=== PATIENT | female | born 1945 | race Hispanic/Latino ===

== ENCOUNTER 2017-08-02 12:09 | Outpatient (CLI) | payer MEDICARE | END 2017-08-02 12:10 | disposition home or self-care (01) | LOC: BICRAD 12:09 | PROVIDERS: ATTEND Family Medicine | DX: M54.5 Low back pain (principal); M25.552 Pain in left hip; M47.896 Other spondylosis, lumbar region | CPT/HCPCS: 72100 ==

== ENCOUNTER 2018-03-10 20:24 | Emergency (ER) | payer MEDICARE | END 2018-03-10 20:48 | disposition left against medical advice (07) | LOC: ERS 20:24 | DX: Z53.21 Procedure and treatment not carried out due to patient leaving prior to being seen by health care provider (principal) ==

== ENCOUNTER 2019-01-29 10:15 | Emergency (ER) | payer MEDICARE ==
[2019-01-29 11:01] LABS: #Basophils 0.1 thou/uL (0.0-0.2); #Eosinphils 0.1 thou/uL (0.0-0.7); #Lymphocytes 1.8 thou/uL (1.20-3.40); #Monocytes 0.7 thou/uL (0.11-0.59); #Neutrophils 6.1 thou/uL (1.40-6.50); %Basophils 1.5 % (0.0-1.0); %Eosinophils 1.3 % (0.0-10.0); %Lymphocytes 20.3 % (21.0-51.0); %Monocytes 8.1 % (0.0-10.0); %Neutrophils 68.9 % (42.0-75.0); Hemoglobin 13.9 g/dL (12.0-16.0); Mean Corpuscular HGB CONC 35.4 g/dL (32.0-36.0); Mean Corpuscular Volume 90.3 fL (78.0-98.0); Mean Platelet Volume 9.9 fL (7.4-10.4); Platelet Count 163 thou/uL (130-400); RBC Distribution Width 11.4 % (11.5-14.5); Red Blood Cell (RBC) Count 4.36 mill/uL (4.20-5.40); White Blood Cell (WBC) Count 8.8 thou/uL (4.8-10.8)
--- NOTE | 2019-01-29 11:13 | RAD ---
Chest AP view INDICATION: Dizziness COMPARISON: June 08, 2014 FINDINGS: Lungs:The lungs are clear Cardiac silhouette:The cardiomediastinal silhouette appears within normal limits. Pulmonary vasculature:Normal Pleural spaces:No pleural effusion or pneumothorax is demonstrated. Upper abdomen:No abnormality seen. Osseous structures: No acute osseous abnormality. Additional findings:None. IMPRESSION: No acute cardiopulmonary abnormality.
--- NOTE | 2019-01-29 11:13 | CT ---
CT Brain WO Con: 01/29/2019 10:48 AM CLINICAL HISTORY: Dizziness and nausea. IMAGING TECHNIQUE: Multiple CT images were obtained of the brain without IV contrast. COMPARISON: February 19, 2003 CT the brain, MR the brain dated February 19, 2003 FINDINGS: Brain: No acute infarct or hemorrhage is evident. No midline shift. There is a stable calcification within the right temporal lobe. Ventricles: Normal. No hydrocephalus.. Skull: Intact.. Visualized Paranasal sinuses: There is mild mucosal thickening within the right sphenoid sinus. The r emaining paranasal sinuses are clear.. Mastoid air cells:Clear. Extracranial soft tissues:Normal. IMPRESSION: No acute intracranial abnormality.
[2019-01-29 11:15] LABS: ALT (SGPT) 12 U/L (8-55); AST (SGOT) 15 U/L (5-34); Albumin 4.2 g/dL (3.4-4.8); Alkaline Phosphatase 57 U/L (40-110); Anion Gap 18 mmol/L (10-20); BUN (Urea Nitrogen) 25 mg/dL (9.8-20.1); Bilirubin, Total 1.5 mg/dL (0.2-1.2); Calc. Creatinine Clearance 0 mL/min (70-130); Calcium 9.8 mg/dL (7.8-10.44); Carbon Dioxide 21 mmol/L (23-31); Chloride 97 mmol/L (98-107); Estimated GFR-MDRD 43; Glucose 301 mg/dL (83-110); Potassium 4.5 mmol/L (3.5-5.1); Protein, Total 7.2 g/dL (6.0-8.3); Sodium 131 mmol/L (136-145)
[2019-01-29] MEDS ORDERED: Ondansetron PF 4 MG/2 ML Vial ONE (11:19)
[2019-01-29 11:23] LABS: CK (CPK) 57 U/L (29-168); Lipase 26 U/L (8-78)
[2019-01-29 13:04] LABS: Bilirubin Negative (Negative); Blood, Urine Negative (Negative); Clarity Clear (Clear); Glucose, Urine (Dipstick) 250 mg/dL (Negative); Leukocyte Moderate (Negative); Nitrite Negative (Negative); Protein, Urine (Dipstick) Negative (Neg-Trace); Urobilinogen 0.2 mg/dL (Less than 2)
[2019-01-29 13:09] LABS: RBC/HPF 0-3 HPF (0-3)
[2019-01-29 13:10] LABS: Bacteria/HPF 1+ HPF (None Seen); Squamous Epithelial 0-3 HPF (0-3)
== END 2019-01-29 14:08 | disposition home or self-care (01) ==
LOC: SCSER 10:15
DX: I95.1 Orthostatic hypotension (principal); N39.0 Urinary tract infection, site not specified; E11.9 Type 2 diabetes mellitus without complications; E78.5 Hyperlipidemia, unspecified; E78.00 Pure hypercholesterolemia, unspecified; E78.2 Mixed hyperlipidemia; I10 Essential (primary) hypertension; Z79.899 Other long term (current) drug therapy; Z79.84 Long term (current) use of oral hypoglycemic drugs
CPT/HCPCS: 36416; 70450; 71045; 80053; 81003; 81015; 82550; 83605; 83690; 84443; 84484; 85025; 93005; 96374; J2405

== ENCOUNTER 2019-02-17 03:37 | Inpatient (IN) | payer MEDICARE ==
[~2019-02-17 03:37] MED LIST: Iopamidol 370 76% 100 ML VIAL ONE
[2019-02-17] MEDS ORDERED: Ondansetron PF 4 MG/2 ML Vial ONE (04:11)
[2019-02-17 04:30] LABS: #Basophils 0.1 thou/uL (0.0-0.2); #Eosinphils 0.1 thou/uL (0.0-0.7); #Lymphocytes 2.1 thou/uL (1.20-3.40); #Monocytes 0.7 thou/uL (0.11-0.59); #Neutrophils 8.5 thou/uL (1.40-6.50); %Basophils 0.5 % (0.0-1.0); %Eosinophils 0.9 % (0.0-10.0); %Lymphocytes 18.5 % (21.0-51.0); %Neutrophils 74.1 % (42.0-75.0); Hemoglobin 13.1 g/dL (12.0-16.0); Mean Corpuscular HGB CONC 35.3 g/dL (32.0-36.0); Mean Corpuscular Hemoglobin 32.6 pg (27.0-31.0); Mean Corpuscular Volume 92.3 fL (78.0-98.0); Mean Platelet Volume 9.2 fL (7.4-10.4); Platelet Count 181 thou/uL (130-400); RBC Distribution Width 11.3 % (11.5-14.5); Red Blood Cell (RBC) Count 4.03 mill/uL (4.20-5.40); White Blood Cell (WBC) Count 11.5 thou/uL (4.8-10.8)
[2019-02-17 04:55] LABS: ALT (SGPT) 15 U/L (8-55); AST (SGOT) 18 U/L (5-34); Albumin 4.5 g/dL (3.4-4.8); Alkaline Phosphatase 112 U/L (40-110); Anion Gap 16 mmol/L (10-20); BUN (Urea Nitrogen) 30 mg/dL (9.8-20.1); Bilirubin, Total 0.9 mg/dL (0.2-1.2); Calc. Creatinine Clearance 0 mL/min (70-130); Calcium 9.8 mg/dL (7.8-10.44); Carbon Dioxide 23 mmol/L (23-31); Chloride 99 mmol/L (98-107); Estimated GFR-MDRD 40; Globulin 2.9 g/dL (2.4-3.5); Glucose 247 mg/dL (83-110); Potassium 4.4 mmol/L (3.5-5.1); Protein, Total 7.4 g/dL (6.0-8.3); Sodium 134 mmol/L (136-145)
[2019-02-17 06:14] LABS: Bilirubin Negative (Negative); Blood, Urine Negative (Negative); Clarity Clear (Clear); Glucose, Urine (Dipstick) 500 mg/dL (Negative); Leukocyte Negative Leu/uL (Negative); Nitrite Negative (Negative); Protein, Urine (Dipstick) Negative (Neg-Trace); Urobilinogen Normal mg/dL (Less than 2)
--- NOTE | 2019-02-17 06:49 | PDOC.FPRHP ---
- History of Present Illness Chief Complaint: Diarrhea History of Present Illness: Mrs. Aditya White is a 73 y/o [place]-only female who presents to the ED with a 2 day history of fatigue and diarrhea. Additionally, she has had several episodes of hypoglycemia, with her blood glucose readings dropping to the low 80s, which is unusual for her. Associated symptoms include mild headache, dry cough and malaise. She denies any recent travel, sick contacts, abnormal foods or dietary habits. She has a recent history of a UTI that was treated at an outside facility with PO antibiotics. She denies dysuria or polyuria at this time, and her family, who was present during the evaluation, denies any changes from baseline mental status. - Allergies/Adverse Reactions Allergies Allergy/AdvReac Type Severity Reaction Status Date / Time metformin Allergy Verified 06/09/14 04:23 actose Allergy Uncoded 02/17/19 06:55 - Home Medications Medication Instructions Recorded Confirmed Type Amlodipine [Norvasc] 5 mg PO DAILY #0 tab 06/09/14 Rx Aspirin Chewable [Aspirin Chewable 81 mg PO DAILY 06/09/14 06/09/14 History Tablet] Atorvastatin Calcium [Lipitor] 40 mg PO HS #0 tab 06/09/14 Rx Nitroglycerin [Nitrostat] 0.4 mg SL Q5MIN #0 tab 06/09/14 Rx Propylene Glycol [Systane Balance] 1 - 2 drop EA EYE ASDIR PRN 06/09/14 History Saxagliptin HCl [Onglyza] 5 mg PO DAILY 06/09/14 06/09/14 History glipiZIDE [Glucotrol XL] 10 mg PO BID-WM 06/09/14 06/09/14 History Comments: The above med list is not correct. The family did not have her home meds with her. She will need meds reviewed and reconciled. Reported meds she on below Statin Lisinoprl Glipizide 10 mg - History PMHx: DMII, HLD, HTN PSHx: Extraction of Molar, 1 c section FHx: Noncontributory Social: Denies any tobacco, illicit drug or alcohol use Pt reports being full code - Review of Systems General: denies: fever/chills, weight/appetite/sleep changes, night sweats, fatigue Eyes: denies: eye pain, vision changes ENT: denies: nasal congestion, rhinorrhea Respiratory: reports: cough (reported as mild. Nonproductive.), shortness of breath. denies: congestion, exercise intolerance Cardiovascular: denies: chest pain, palpitation, edema, paroxysmal nocturnal dyspnea, orthopnea Gastrointestinal: reports: nausea, diarrhea, abdominal pain. denies: vomiting, constipation, GI bleeding Genitourinary: denies: incontinence, dysuria, polyuria Skin: denies: rashes, lesions Musculoskeletal: denies: pain, tenderness, stiffness, arthritis/arthralgias, other Neurological: reports: weakness. denies: numbness, syncope, seizure Psychological: denies: anxiety, depression - Vital signs BP: [106/42] HR: [79] RR: [16] Tmax: [97.9] Pox: [100]% on [RA] Wt: [] - Physical Exam Constitutional: NAD, well developed, other (Patient appeared fatigued.) HEENT: normocephalic and atraumatic, PERRLA, EOMI, conjunctiva clear, no scleral icterus, grossly normal vision, grossly normal hearing, normal nasal mucosa, MMM, oropharynx clear Neck: supple, FROM, trachea midline, no LAD Chest: no-tender to palpation, no lesions Heart: RRR, normal S1/S2, no murmurs/rubs/gallops, pulses present, no edema Lungs: CTAB, no respiratory distress, no rales/rhonchi, no wheezing, no retractions Abdomen: soft, bowel sounds present, no masses/distention, other (Mild suprapubic tenderness.) Musculoskeletal: normal structure, ROM grossly normal Neurological: no focal deficit, normal sensation Skin: no rash/lesions, no jaundice Heme/Lymphatic: no unusual bruising or bleeding, no purpura, no petechia, no LAD Psychiatric: normal mood and affect, intact recent and remote memory FMR H&P: Results - Labs Result Diagrams: 02/17/19 04:02 02/17/19 04:02 Lab results: WBC 11.5 thou/uL (4.8-10.8) H 02/17/19 04:02 Hgb 13.1 g/dL (12.0-16.0) 02/17/19 04:02 Hct 37.2 % (36.0-47.0) 02/17/19 04:02 MCV 92.3 fL (78.0-98.0) 02/17/19 04:02 Plt Count 181 thou/uL (130-400) 02/17/19 04:02 Neutrophils % 74.1 % (42.0-75.0) 02/17/19 04:02 Sodium 134 mmol/L (136-145) L 02/17/19 04:02 Potassium 4.4 mmol/L (3.5-5.1) 02/17/19 04:02 Chloride 99 mmol/L (98-107) 02/17/19 04:02 Carbon Dioxide 23 mmol/L (23-31) 02/17/19 04:02 BUN 30 mg/dL (9.8-20.1) H 02/17/19 04:02 Creatinine 1.32 mg/dL (0.6-1.1) H 02/17/19 04:02 Glucose 247 mg/dL (83-110) H 02/17/19 04:02 Lactic Acid 1.9 mmol/L (0.5-2.2) 02/17/19 04:02 Calcium 9.8 mg/dL (7.8-10.44) 02/17/19 04:02 Total Bilirubin 0.9 mg/dL (0.2-1.2) 02/17/19 04:02 AST 18 U/L (5-34) 02/17/19 04:02 ALT 15 U/L (8-55) 02/17/19 04:02 Alkaline Phosphatase 112 U/L (40-110) H 02/17/19 04:02 Serum Total Protein 7.4 g/dL (6.0-8.3) 02/17/19 04:02 Albumin 4.5 g/dL (3.4-4.8) 02/17/19 04:02 Urine Ketones Negative mg/dL (Negative) 02/17/19 05:03 Urine Blood Negative (Negative) 02/17/19 05:03 Urine Nitrite Negative (Negative) 02/17/19 05:03 Ur Leukocyte Esterase Negative Helio/uL (Negative) 02/17/19 05:03 - Radiology Interpretation CT scan - abdomen Status: image reviewed by me, pending (official read pending) FMR H&P: A/P - Plan 1. Dehydration, likely secondary to Viral Gastroenteritis -HPI and current fatigue is concerning in an elderly patient -Vital signs currently stable in ED, family present during evaluation -CT ABD/Pelvis: Read Pending -Stool Studies: Pending -Initiate fluid resuscitation. LR@100mls/hr -PT/OT consulted. Pt appears somewhat weak. 2. VIANCA -Cr: 1.32 -Should improve once adequate fluid resuscitation 3. DM -Recent illness likely contributing to fluctuations in blood glucose -Accuchecks Q4H -Mild Sliding Scale Insulin -Restart home medication regimen once med recd 4. HTN -Hold home meds due to BP being a little low. 5. HLD -continue home meds. Code: Full Diet: Heart Healthy Activity: Ambulate w/ Assist DVT PPx: SCDs Dispo: Admit to Medical Floor for observation. Initiate fluid resuscitation and await stool studies to evaluate for possible infectious etiologies. FMR H&P: Upper Level - Pertinent history I was present with the social media intern during the HPI. I scribed the above document. I made edits as needed. - Pertinent findings Pt appears tired. Resting in bed. Abdomen NTTP. - Plan Date/Time: 02/17/19 0648 I, Damon Costello PGY3, have evaluated this patient and agree with findings/plan as outlined by social media intern resident. Pertinent changes/additions are listed here. See above for detailed plan. I made edits as needed. Agree with above. Addendum - Attending - Attending Attestation Date/Time: 02/17/19 1027 I personally evaluated the patient and discussed the management with Dr. Tapia /Trang. I agree with the History, Examination, Assessment and Plan documented above with any addition or exceptions noted below. Patient here for malaise and diarrhea for a few days. Exam overall with no acute findings. Labwork is reassuring. Stool studies currently normal. Patient has been placed in obs status for hypovolemia 2/2 enteritis. Continue IV fluid hydration and cultures pending. Ambulate frequently. She did have an episode of chest pain after admission. Her EKG shows ST depression mild in V4-V6. Trop just resulted as positive. She is not having chest pain currently. Will administer lovenox for now, trending troponin and checking one from bloodwork at admission to evaluate for changes. Likely NSTEMI type 2 2/2 demand but will monitor and likely cardiology consult.
[2019-02-17] MEDS ORDERED: Ondansetron ODT 4 MG TAB PO PRN (07:33)
[2019-02-17] MEDS ORDERED: Acetaminophen 325 MG TAB PO PRN (07:33)
[2019-02-17] MEDS ORDERED: Ondansetron PF 4 MG/2 ML Vial IVP PRN (07:33)
--- NOTE | 2019-02-17 07:41 | CT ---
PRELIMINARY REPORT/[facility]/EMERGENCY AFTER HOURS PROCEDURE PROCEDURE INFORMATION: Exam: CT Abdomen And Pelvis With Contrast Exam date and time: 02/17/2019 5:23 AM Clinical history: 73 years old, female; Generalized; Patient HX: Er 3. Yesterday evening at 2200, the patient reports that she developed profuse watery diarrhea. She also reports that she has had chills and felt nauseous. She notes some abdominal pain initially that has improved since. Family notes that the patient was recently on antibiotics for a urinary tract infection. TECHNIQUE: Imaging protocol: Computed tomography of the abdomen and pelvis with intravenous contrast. COMPARISON: No relevant prior studies available. FINDINGS: Lungs: Right lower lobe 4 mm pulmonary nodule (series 2, image 3). No consolidations in the lung bases. Liver: No liver masses. Gallbladder and bile ducts: Gallbladder hydrops with layering stones. No wall thickening. No biliary dilation. Pancreas: No pancreatic mass or ductal dilation. Spleen: No splenic masses. Adrenals: No adrenal nodules. Kidneys and ureters: No enhancing mass or hydronephrosis. Stomach and bowel: No evidence of obstruction or bowel wall thickening. Appendix: Normal appendix. Intraperitoneal space: No free air or free fluid. Vasculature: Atherosclerosis of the aorta without aneurysm. Lymph nodes: No lymphadenopathy. Bladder: Normal bladder. Reproductive: Normal appearance of the uterus and adnexa. Bones/joints: Degenerative changes of the lumbar spine. Soft tissues: Tiny fat containing umbilical hernia. IMPRESSION: 1. No bowel obstruction or evidence of appendicitis. 2. Gallbladder hydrops and cholelithiasis. 3. Right lower lobe 4 mm pulmonary nodule. Defer to on-site Radiologist for follow-up recommendations. Thank you for allowing us to participate in the care of your patient. Dictated and Authenticated by: Noemy Salas MD 02/17/2019 5:57 AM Central Time ([place] & [place]) FINAL REPORT CT ABDOMEN AND PELVIS WITH IV CONTRAST 02/17/2019 PERFORMED ON AN EMERGENCY BASIS AT 0524 HOURS: HISTORY: Abdominal pain. FINDINGS: Agree with the preliminary report by Dr. Salas from [facility]. Gallbladder is very distended, m easuring up to 11.8 cm length on the coronal images. Hyperdense material layering within the dependent portion of the gallbladder lumen likely represents biliary sludge given that iodine contras t has not been administered prior to the current exam. Clinical correlation regarding other signs and symptoms of acute cholecystitis is required. Radionucl eotide hepatobiliary scan could be used to evaluate for cystic duct patency. Tiny nonspecific subpleural nodule right lower lobe. Follow-up not necessarily needed. Prominent atherosclerosis. Code QA. Transcribed Date/Time: 02/17/2019 8:44 AM
[2019-02-17] MEDS ORDERED: Sodium Chloride 0.9% 1,000 ML IV SCH (07:45)
[2019-02-17] MEDS ORDERED: Dextrose 50% Abboject 50 ML SYRINGE SLOW IVP PRN (08:01)
[2019-02-17] MEDS ORDERED: Dextrose 5% in Water 1,000 ML IV PRN (08:01)
[2019-02-17] MEDS ORDERED: Calcium Carbonate 500 MG ChewTAB PO PRN (08:01)
[2019-02-17] MEDS ORDERED: Enoxaparin Sodium 40 MG/0.4 ML SYRINGE SC SCH (09:00)
[2019-02-17] MEDS: Lactated Ringer's 1,000 ML IV SCH ×2 (09:39→21:35)
[2019-02-17] MEDS: Famotidine/PF 20 mg/2ml Vial SLOW IVP SCH ×2 (09:40→21:16)
[2019-02-17 10:30] LABS: CKMB 8.9 ng/mL (0-6.6)
[2019-02-17 11:18] LABS: Troponin I 0.775 ng/mL (< 0.028)
[2019-02-17] MEDS ORDERED: Enoxaparin Sodium 30 MG/0.3 ML SYRINGE SC SCH ×2 (12:00→17:00)
[2019-02-17] MEDS: HumaLOG 300 UNITS/3 ML VIAL SC PRN (13:36)
[2019-02-17 14:55] LABS: CKMB 21.7 ng/mL (0-6.6)
[2019-02-17] MEDS ORDERED: Enoxaparin Sodium 80 MG/0.8 ML SYRINGE SC SCH (16:30)
[2019-02-17] MEDS: Nitroglycerin 2% Ointment 1 INCH/1 GM Packet TOP SCH ×2 (16:59→21:15)
--- NOTE | 2019-02-17 17:22 | PDOC.BPN ---
- Brief Progress Note Called to bedside for bradycardia and chest pressure Patient has had 3-4 episodes of bradycardia to the 30s lasting 30s-1 min on tele , now rate is at 60 Patient states that her chest pressure better than when she came in but still feels some pressure No acute distress, speaking in complete sentences, hungry Consulted with Dr. Ward who rec'd giving an early dose of lovenox and some nitro-paste patient got 40mg this AM for PPx and was scheduled for 70mg tonight. Now dose of 30mg ordered Ordered EKG
[2019-02-17] MEDS ORDERED: Aspirin 81 mg Enteric Coated Tablet PO SCH (18:30)
[2019-02-17] MEDS: Atorvastatin Calcium 40 MG TAB PO SCH (21:16)
[2019-02-17] MEDS: Enoxaparin Sodium 80 MG/0.8 ML SYRINGE SC SCH (21:34)
--- NOTE | 2019-02-17 23:49 | CON ---
DATE OF CONSULTATION: HISTORY OF PRESENT ILLNESS: Mrs. Aditya White is a 73-year-old female, [place]-speaking only. She has been previously seen by Dr. Awad in January 2008. She had chest discomfort and Cardiolite revealed anterior and inferolateral ischemia with a TID of 1.30. The patient refused cardiac catheterization. She also was seen by Dr. Valdez in June 2014 again with chest discomfort. Again, it was recommended she undergo cardiac catheterization, however, she declined. She now is admitted with a 2-day history of fatigue, diarrhea, difficulty controlling her diabetes. She denies any nausea, vomiting, diaphoresis, or shortness of breath. She has been having intermittent chest discomfort today. She describes this as a chest pressure. Apparently, she has not had this previously. However, the family has noted over the last 1 or 2 months that she has been having increasing fatigue. She has had positive cardiac enzymes and cardiology consultation is requested. PAST MEDICAL HISTORY: Diabetes, hypertension, hyperlipidemia. PAST SURGICAL HISTORY: . MEDICATIONS: At home are unclear, but the current list on the computer- 1. Amlodipine 5 mg daily. 2. Aspirin 81 daily. 3. Atorvastatin 40 mg at bedtime. 4. Glipizide 10 mg b.i.d. 5. Nitroglycerin p.r.n. 6. Onglyza 5 mg daily. ALLERGIES: METFORMIN AND ACTOS. SOCIAL HISTORY: She does not smoke or drink. REVIEW OF SYSTEMS: Unremarkable except as noted above. PHYSICAL EXAMINATION: VITAL SIGNS: Blood pressure 118/57, pulse 66. HEENT: PERRL. NECK: Supple. CHEST: Clear. CARDIAC: S1 and S2 normal without any S3, S4, or murmurs. ABDOMEN: Normal bowel sounds without tenderness. EXTREMITIES: Reveal no clubbing, cyanosis, or edema. NEUROLOGIC: Grossly intact. SKIN: Warm and dry. LABORATORY DATA: EKG reveals sinus bradycardia with rate of 58 per minute with nonspecific ST-segment changes on EKG from today. On the EKG when she was admitted this morning, there appears to be more ST-segment depression in the lateral leads. On the monitor, she has also had up to a 2.7-second sinus pause. Hemoglobin 13.1, hematocrit 37.2, white count 11,500. Troponin I is up to 21.7. Sodium 134, potassium 4.4, chloride 99, carbon dioxide 23, BUN 30, and creatinine 1.32. TSH is normal. IMPRESSION: 1. [id number] myocardial infarction, probably lateral. 2. The patient refused cardiac catheterization in 2007 and in 2014. 3. Diarrhea, now resolved. 4. Hypertension. 5. Hyperlipidemia. 6. Diabetes. PLAN: Situation was discussed with the patient with a relative acting as a college scouting coordinator. It is recommended that she undergo cardiac catheterization. Risks have been discussed including , myocardial infarction, dye reaction, vascular injury, CVA, transfusion, limb loss, renal loss, etc. Also risks of intervention with PTCA and stent placement were discussed including , myocardial infarction, emergent CABG, restenosis, stent thrombosis, vessel perforation, etc. She understands. She has no history of gastrointestinal bleeding. No upcoming surgeries or history of stroke, and a drug-eluting stent will be placed if needed. She is still quite concerned about proceeding with catheterization, but is leaning toward having this done. In the meantime, echocardiogram will be performed to assess left ventricular function. She needs to be on aspirin 325 daily and topical nitrates have been placed. She has been anticoagulated with Lovenox. Job ID: [id number] [facility]
[2019-02-18 04:53] LABS: ALT (SGPT) 11 U/L (8-55); AST (SGOT) 30 U/L (5-34); Albumin 3.2 g/dL (3.4-4.8); Alkaline Phosphatase 45 U/L (40-110); Anion Gap 9 mmol/L (10-20); BUN (Urea Nitrogen) 13 mg/dL (9.8-20.1); Bilirubin, Total 1.3 mg/dL (0.2-1.2); Calc. Creatinine Clearance 66 mL/min (70-130); Calcium 8.8 mg/dL (7.8-10.44); Carbon Dioxide 26 mmol/L (23-31); Cardiac Risk 3.2 (Less than 4.5); Chloride 109 mmol/L (98-107); Cholesterol 116 mg/dl (< 200 Desired); Estimated GFR-MDRD 69; Globulin 2.1 g/dL (2.4-3.5); Glucose 116 mg/dL (83-110); HDL Cholesterol 36 mg/dL (>60 Neg Risk); LDL Cholesterol, Calculated 62 mg/dL; Potassium 3.8 mmol/L (3.5-5.1); Protein, Total 5.3 g/dL (6.0-8.3); Sodium 140 mmol/L (136-145); Triglycerides 89 mg/dL (Less than 150)
[2019-02-18 04:56] LABS: Band 3 % (5-11); Eosinophils 4 % (0-10); Hemoglobin 10.8 g/dL (12.0-16.0); Lymphocytes 29 % (21-51); MDiff Complete? YES; Mean Corpuscular Hemoglobin 32.8 pg (27.0-31.0); Mean Corpuscular Volume 93.7 fL (78.0-98.0); Mean Platelet Volume 9.1 fL (7.4-10.4); Monocytes 7 % (0-10); Neutrophil 55 % (42-75); Platelet Count 140 thou/uL (130-400); Platelet Morphology Comment Appears Adequate; RBC Distribution Width 11.4 % (11.5-14.5); RBC Morphology Normal; Reactive Lymphocytes 1 % (0-10); Red Blood Cell (RBC) Count 3.29 mill/uL (4.20-5.40); White Blood Cell (WBC) Count 6.7 thou/uL (4.8-10.8)
[2019-02-18] MEDS: Lactated Ringer's 1,000 ML IV SCH ×3 (07:42→18:31)
--- NOTE | 2019-02-18 07:44 | PDOC.FM ---
- Subjective Subjective: reports good sleep overnight. complains of some back pain which she states she has had for a few days. No CP or SOB currently. No palpitations - Objective Vital Signs & Weight: Vital Signs (12 hours) Temp Pulse Resp BP Pulse Ox 02/18/19 07:35 98.6 F 55 L 16 129/59 L 97 02/18/19 04:00 98.1 F 60 18 118/56 L 97 02/17/19 23:45 56 L 120/54 L Weight Weight 67.558 kg I&O: 02/17/19 02/18/19 02/19/19 06:59 06:59 06:59 Intake Total 1680 Balance 1680 Result Diagrams: 02/18/19 04:00 02/18/19 04:00 Phys Exam - Physical Examination Constitutional: NAD HEENT: moist MMs, sclera anicteric Neck: no JVD, supple Respiratory: no wheezing, clear to auscultation bilateral Cardiovascular: RRR, no significant murmur Gastrointestinal: soft, non-tender Musculoskeletal: no edema, pulses present Neurological: normal sensation, moves all 4 limbs Psychiatric: normal affect, A&O x 3 Skin: no rash, normal turgor Dx/Plan (1) NSTEMI (non-ST elevated myocardial infarction) Code(s): I21.4 - NON-ST ELEVATION (NSTEMI) MYOCARDIAL INFARCTION Status: Acute (2) Dehydration Code(s): E86.0 - DEHYDRATION Status: Acute (3) Gastroenteritis Code(s): K52.9 - NONINFECTIVE GASTROENTERITIS AND COLITIS, UNSPECIFIED Status : Acute (4) Chest pain Code(s): R07.9 - CHEST PAIN, UNSPECIFIED Status: Acute - Plan Plan: NSTEMI A- reversible ischemia on stress test. Pt has refused cath in the past but is amenable to it now. P- Pt on therapeutic lovenox -f/u cards recs -probable cath soon Dehydration, likely secondary to Viral Gastroenteritis A- resolved, stool studies normal P- monitor fluid status DM A- Recent illness likely contributing to fluctuations in blood glucose P- Accuchecks Q4H -Mild Sliding Scale Insulin -Restart home medication regimen once med recd HTN -Hold home meds due to BP being a little low. VIANCA -resolved, Cr: 1.32 -> 0.82 HLD -continue home meds. Code: Full Diet: Heart Healthy Activity: Ambulate w/ Assist DVT PPx: SCDs Addendum - Attending - Attending Attestation Date/Time: 02/18/19 3362 I personally evaluated the patient and discussed the management with Dr. Leary. I agree with the History, Examination, Assessment and Plan documented above with any addition or exceptions noted below. Patient overall stable. She had NSTEMI at some point in the past. Currently on anticoagulation and Cardiology consulted. Plan for likely cath. Her renal function is improved. Presenting complaint was diarrhea which has been worked up and is not infectious in etiology. Echo pending.
[2019-02-18] MEDS ORDERED: Prevnar 13-Val Conj/PF 0.5 ML SYRINGE IM ONE (09:00)
[2019-02-18] MEDS: Nitroglycerin 2% Ointment 1 INCH/1 GM Packet TOP SCH ×4 (10:05→21:02)
[2019-02-18] MEDS: Aspirin 325 mg Enteric Coated Tablet PO SCH (10:05)
[2019-02-18] MEDS: Enoxaparin Sodium 80 MG/0.8 ML SYRINGE SC SCH ×2 (10:06→21:01)
[2019-02-18] MEDS: Famotidine/PF 20 mg/2ml Vial SLOW IVP SCH ×2 (10:06→21:00)
[2019-02-18] MEDS: HumaLOG 300 UNITS/3 ML VIAL SC PRN (18:21)
[2019-02-18] MEDS: Atorvastatin Calcium 40 MG TAB PO SCH (21:01)
[2019-02-19 05:40] LABS: Anion Gap 11 mmol/L (10-20); BUN (Urea Nitrogen) 12 mg/dL (9.8-20.1); Calc. Creatinine Clearance 53 mL/min (70-130); Carbon Dioxide 26 mmol/L (23-31); Chloride 107 mmol/L (98-107); Estimated GFR-MDRD 66; Glucose 176 mg/dL (83-110); Potassium 4.2 mmol/L (3.5-5.1); Sodium 140 mmol/L (136-145)
--- NOTE | 2019-02-19 07:00 | PDOC.FM ---
- Subjective Subjective: Pt reports good sleep overnight, reports Cardiology plans for cath on Wednesday. No CP no SOB no fever/chills, no new complaints - Objective Vital Signs & Weight: Vital Signs (12 hours) Temp Pulse Resp BP Pulse Ox 02/19/19 03:00 98.3 F 60 18 121/58 L 97 02/18/19 23:00 98.2 F 65 19 136/63 96 02/18/19 19:45 98.5 F 65 14 180/76 H 98 Weight Admit Weight 67.558 kg Weight 55.837 kg I&O: 02/17/19 02/18/19 02/19/19 06:59 06:59 06:59 Intake Total 1680 4943 Output Total 1625 Balance 1680 3318 Result Diagrams: 02/18/19 04:00 02/19/19 04:46 Dx/Plan (1) NSTEMI (non-ST elevated myocardial infarction) Code(s): I21.4 - NON-ST ELEVATION (NSTEMI) MYOCARDIAL INFARCTION Status: Acute (2) Dehydration Code(s): E86.0 - DEHYDRATION Status: Acute (3) Gastroenteritis Code(s): K52.9 - NONINFECTIVE GASTROENTERITIS AND COLITIS, UNSPECIFIED Status : Acute (4) Chest pain Code(s): R07.9 - CHEST PAIN, UNSPECIFIED Status: Acute - Plan Plan: NSTEMI A- reversible ischemia on stress test. Pt has refused cath in the past but is amenable to it now. P- Pt on therapeutic lovenox -f/u cards recs -probable cath Wednesday -dispo per cards Dehydration, likely secondary to Viral Gastroenteritis A- resolved, stool studies normal P- monitor fluid status DM A- Recent illness likely contributing to fluctuations in blood glucose P- Accuchecks Q4H -Mild Sliding Scale Insulin -Restart home medication regimen once med recd -family is still to bring med list from home HTN -Hold home meds due to BP being a little low. VIANCA -resolved, Cr: 1.32 -> 0.82 HLD -continue home meds. Code: Full Diet: Heart Healthy Activity: Ambulate w/ Assist Addendum - Attending - Attending Attestation Date/Time: 02/19/19 2219 I personally evaluated the patient and discussed the management with Dr. Leary. I agree with the History, Examination, Assessment and Plan documented above with any addition or exceptions noted below. Patient stable. Echo resulted. Awaiting further cardiology mgmt regarding need for heart cath. Can d/c IV fluids at this time as she is tolerating PO.
[2019-02-19] MEDS: Chloraseptic Spray 180 ml Bottle PO PRN ×2 (10:09→20:46)
[2019-02-19] MEDS: Gabapentin 100 MG CAP PO SCH (10:10)
[2019-02-19] MEDS: Nitroglycerin 2% Ointment 1 INCH/1 GM Packet TOP SCH ×4 (10:10→20:45)
[2019-02-19] MEDS: Aspirin 325 mg Enteric Coated Tablet PO SCH (10:10)
[2019-02-19] MEDS: Enoxaparin Sodium 80 MG/0.8 ML SYRINGE SC SCH (10:11)
[2019-02-19] MEDS: Famotidine/PF 20 mg/2ml Vial SLOW IVP SCH ×2 (10:11→20:45)
[2019-02-19] MEDS: Lisinopril/Hydrochlorothiazide 20/25 mg Tablet PO SCH (10:11)
[2019-02-19] MEDS: Lactated Ringer's 1,000 ML IV SCH (10:27)
[2019-02-19] MEDS ORDERED: Atorvastatin Calcium 10 MG TAB PO SCH (17:00)
[2019-02-19] MEDS: Atorvastatin Calcium 40 MG TAB PO SCH (20:45)
--- NOTE | 2019-02-20 06:11 | PDOC.FM ---
- Subjective Subjective: Doing well this morning, no acute events overnight. Early awaiting cardiac cath this morning. Denies any CP, SOB, n/v, d/c, fever/chills. NPO for cath. Family at bedside and also eagerly awaiting cath. - Objective MAR Reviewed: Yes Vital Signs & Weight: Vital Signs (12 hours) Temp Pulse Resp BP Pulse Ox 02/20/19 03:25 98.6 F 63 20 138/65 96 02/19/19 20:05 97.6 F 56 L 16 150/65 H 97 Weight Admit Weight 67.558 kg Weight 55.837 kg I&O: 02/18/19 02/19/19 02/20/19 06:59 06:59 06:59 Intake Total 1680 4943 720 Output Total 1625 Balance 1680 3318 720 Result Diagrams: 02/18/19 04:00 02/19/19 04:46 EKG Reviewed by me: Yes (Tele: Sinus, no acute events) Phys Exam - Physical Examination Constitutional: NAD (resting comfortably in bed) HEENT: PERRLA, moist MMs Neck: supple Respiratory: no wheezing, no rales, no rhonchi, clear to auscultation bilateral Cardiovascular: RRR, no significant murmur, no rub Gastrointestinal: soft, non-tender, no distention, positive bowel sounds Musculoskeletal: no edema, pulses present Neurological: non-focal Psychiatric: A&O x 3 Dx/Plan (1) NSTEMI (non-ST elevated myocardial infarction) Code(s): I21.4 - NON-ST ELEVATION (NSTEMI) MYOCARDIAL INFARCTION Status: Acute (2) Dehydration Code(s): E86.0 - DEHYDRATION Status: Acute (3) Gastroenteritis Code(s): K52.9 - NONINFECTIVE GASTROENTERITIS AND COLITIS, UNSPECIFIED Status : Acute (4) Chest pain Code(s): R07.9 - CHEST PAIN, UNSPECIFIED Status: Acute - Plan Plan: 73yo F with h/o DMII, HLD, HTN presents with sxs of diarrhea and weakness found to have NSTEMI #NSTEMI - Troponin uptrended to >2, nonspecific EKG changes. Pt has refused cath in the past but is amenable to it now. - Cards consulted, plan for heart cath today, apprec recs and assistance - On Therapeutic lovenox - Will continue to monitor closely and anticipate post-cath recommendations by cards # Viral Gastroenteritis, resolved - sxs resolved, all stool studies normal # DMII - Recent illness likely contributing to fluctuations in blood glucose - Accuchecks Q4H - Mild Sliding Scale Insulin - On home glipizide # HTN - restarted home Lisinopril/HCTZ # VIANCA, resolved - Cr: 1.32 -> 0.82 # HLD - continue home meds. Code: Full Diet: NPO for heart cath Activity: Ambulate w/ Assist Dispo: Heart cath today, will cont to monitor and await cards recs post cath. Addendum - Attending - Attending Attestation Date/Time: 02/20/19 1233 I personally evaluated the patient and discussed the management with Dr. Latrice Rice I agree with the History, Examination, Assessment and Plan documented above with any addition or exceptions noted below.
[2019-02-20] MEDS ORDERED: Sodium Chloride 0.9% 1,000 ML IV SCH ×2 (07:45→11:46)
[2019-02-20] MEDS ORDERED: Communication Order-Pharmacy FS SCH (07:45)
[2019-02-20] MEDS: Aspirin 325 mg Enteric Coated Tablet PO SCH (08:59)
[2019-02-20] MEDS: Nitroglycerin 2% Ointment 1 INCH/1 GM Packet TOP SCH ×4 (08:59→21:58)
[2019-02-20] MEDS ORDERED: Heparin 10,000 UNITS/1 ML VIAL ONE ×2 (09:02→10:21)
[2019-02-20] MEDS ORDERED: Lidocaine 1% (PF) 30 ML VIAL ONE ×2 (09:02→10:21)
[2019-02-20] MEDS: Lisinopril/Hydrochlorothiazide 20/25 mg Tablet PO SCH ×2 (09:32→12:44)
[2019-02-20] MEDS ORDERED: Midazolam HCl 2 mg/2 ml Vial ONE (11:10)
[2019-02-20] MEDS ORDERED: Fentanyl 100 MCG/2 ML VIAL ONE (11:10)
[2019-02-20] MEDS ORDERED: Protamine Sulfate 50 MG/5 ML VIAL ONE (11:27)
[2019-02-20] MEDS ORDERED: Acetaminophen/Codeine 30-300mg Tablet PO PRN ×2 (11:44)
[2019-02-20] MEDS ORDERED: Sodium Chloride 0.9% 200 ML IV PRN (11:44)
[2019-02-20] MEDS: Gabapentin 100 MG CAP PO SCH (12:45)
[2019-02-20] MEDS: Famotidine/PF 20 mg/2ml Vial SLOW IVP SCH (12:45)
[2019-02-20] MEDS ORDERED: hydrALAZINE 20 MG/ML VIAL SLOW IVP PRN (14:43)
[2019-02-20] MEDS ORDERED: Lisinopril 10 MG TAB PO SCH (16:15)
[2019-02-20] MEDS ORDERED: Iopamidol 370 76% 100 ML VIAL ONE (20:45)
[2019-02-20] MEDS: Chloraseptic Spray 180 ml Bottle PO PRN (21:57)
[2019-02-20] MEDS: Atorvastatin Calcium 40 MG TAB PO SCH (21:58)
--- NOTE | 2019-02-20 23:06 | EKG ---
Test Reason : Blood Pressure : / mmHG Vent. Rate : 070 BPM Atrial Rate : 070 BPM P-R Int : 196 ms QRS Dur : 094 ms QT Int : 404 ms P-R-T Axes : 061 048 090 degrees QTc Int : 436 ms Normal sinus rhythm ST depression, consider subendocardial injury or digitalis effect Abnormal ECG When compared with ECG of 17-FEB-2019 06:21, (Unconfirmed) No significant change was found Confirmed by KAREN CHEEK M.D. ([id number]) on 02/20/2019 11:06:33 PM Referred By: PB cox Confirmed By:KAREN CHEEK M.D.
--- NOTE | 2019-02-20 23:13 | EKG ---
Test Reason : Blood Pressure : / mmHG Vent. Rate : 058 BPM Atrial Rate : 058 BPM P-R Int : 198 ms QRS Dur : 084 ms QT Int : 412 ms P-R-T Axes : 060 014 079 degrees QTc Int : [address] abnormality, possible digitalis effect Abnormal ECG Confirmed by KAREN CHEEK M.D. ([id number]) on 02/20/2019 11:13:11 PM Referred By: LALA Confirmed By:KAREN CHEEK M.D.
--- NOTE | 2019-02-21 05:48 | PDOC.FM ---
- Subjective Subjective: Doing well this morning. Had cardiac cath yesterday, been doing well since. No CP, SOB, fever/chills, n/v, abdominal pain. States she has generalized weakness , chronic in nature, and took multivitamin at home and would like to continue here. Spoke with Cards yesterday post cath and stated severe 3v disease and thus they are awaiting CV surg today for further recommendations and plan. - Objective MAR Reviewed: Yes Vital Signs & Weight: Vital Signs (12 hours) Temp Pulse Resp BP Pulse Ox 02/21/19 03:07 98.5 F 54 L 18 111/53 L 97 02/20/19 23:29 123/58 L 02/20/19 21:28 99 Weight Admit Weight 67.558 kg Weight 55.384 kg I&O: 02/19/19 02/20/19 02/21/19 06:59 06:59 06:59 Intake Total 4943 2235 1660 Output Total 1625 1325 1500 Balance 3318 910 160 Result Diagrams: 02/21/19 06:23 02/21/19 06:23 Phys Exam - Physical Examination Constitutional: NAD HEENT: PERRLA, moist MMs Neck: supple Respiratory: no wheezing, no rales, no rhonchi, clear to auscultation bilateral Cardiovascular: RRR, no significant murmur, no rub Gastrointestinal: soft, non-tender, no distention, positive bowel sounds Musculoskeletal: no edema, pulses present Neurological: non-focal Psychiatric: normal affect, A&O x 3 Dx/Plan (1) NSTEMI (non-ST elevated myocardial infarction) Code(s): I21.4 - NON-ST ELEVATION (NSTEMI) MYOCARDIAL INFARCTION Status: Acute (2) Dehydration Code(s): E86.0 - DEHYDRATION Status: Acute (3) Gastroenteritis Code(s): K52.9 - NONINFECTIVE GASTROENTERITIS AND COLITIS, UNSPECIFIED Status : Acute (4) Chest pain Code(s): R07.9 - CHEST PAIN, UNSPECIFIED Status: Acute - Plan Plan: 73yo F with h/o DMII, HLD, HTN presents with sxs of diarrhea and weakness found to have NSTEMI, now post cardiac cath. #NSTEMI - Troponin uptrended to >2, nonspecific EKG changes. - Cards consulted, heart cath on 02/21 demonstrated severe 3v disease, EF 50-55% , apprec recs and assistance - CV surg consulted to eval for bypass and discuss with pt and family, apprec rec - asxs, no events on tele, nitro prn, cont to monitor # Viral Gastroenteritis, resolved - sxs resolved, all stool studies normal # DMII - BG stable 115-185 - Accuchecks Q4H - Mild Sliding Scale Insulin - On home glipizide - Allergy to actos and metformin # HTN - restarted home Lisinopril/HCTZ - Cards increased dose of lisinopril yesterday # VIANCA, resolved - Cr: 1.32 -> 0.82 # HLD - continue home meds. Code: Full Diet: HH Activity: Ambulate w/ Assist VTE: SCDs Dispo: S/P cardiac cath, severe 3v disease, awaiting CV surg recs, apprec assistance. Addendum - Attending - Attending Attestation Date/Time: 02/21/19 2067 I personally evaluated the patient and discussed the management with Dr. Isabel Rice I agree with the History, Examination, Assessment and Plan documented above with any addition or exceptions noted below. Visited with Patient/family through retail agent regard status and care plan and CT consultation pending for consideration CABG.
[2019-02-21 06:32] LABS: #Eosinphils 0.2 thou/uL (0.0-0.7); #Lymphocytes 1.7 thou/uL (1.20-3.40); #Monocytes 0.8 thou/uL (0.11-0.59); #Neutrophils 4.2 thou/uL (1.40-6.50); %Basophils 0.7 % (0.0-1.0); %Eosinophils 2.9 % (0.0-10.0); %Monocytes 11.1 % (0.0-10.0); %Neutrophils 60.3 % (42.0-75.0); Hemoglobin 11.2 g/dL (12.0-16.0); Mean Corpuscular HGB CONC 34.9 g/dL (32.0-36.0); Mean Corpuscular Hemoglobin 32.8 pg (27.0-31.0); Mean Platelet Volume 9.5 fL (7.4-10.4); Platelet Count 122 thou/uL (130-400); RBC Distribution Width 11.4 % (11.5-14.5); Red Blood Cell (RBC) Count 3.42 mill/uL (4.20-5.40); White Blood Cell (WBC) Count 6.9 thou/uL (4.8-10.8)
[2019-02-21 06:52] LABS: Anion Gap 9 mmol/L (10-20); BUN (Urea Nitrogen) 11 mg/dL (9.8-20.1); Calc. Creatinine Clearance 47 mL/min (70-130); Calcium 8.9 mg/dL (7.8-10.44); Carbon Dioxide 27 mmol/L (23-31); Chloride 103 mmol/L (98-107); Estimated GFR-MDRD 55; Glucose 186 mg/dL (83-110); Potassium 3.9 mmol/L (3.5-5.1); Sodium 135 mmol/L (136-145)
[2019-02-21] MEDS ORDERED: Polyethylene Glycol 3350 17 GM Packet PO PRN (08:21)
[2019-02-21] MEDS: Docusate 100 MG CAP PO SCH ×2 (08:46→22:01)
[2019-02-21] MEDS: Gabapentin 100 MG CAP PO SCH (08:47)
[2019-02-21] MEDS: Aspirin 325 mg Enteric Coated Tablet PO SCH (08:47)
[2019-02-21] MEDS: Nitroglycerin 2% Ointment 1 INCH/1 GM Packet TOP SCH ×4 (08:47→22:02)
[2019-02-21] MEDS: Lisinopril/Hydrochlorothiazide 20/25 mg Tablet PO SCH (08:47)
[2019-02-21] MEDS ORDERED: Multivit, Therapeutic 1 TAB PO SCH (09:00)
[2019-02-21] MEDS: Chloraseptic Spray 180 ml Bottle PO PRN (17:26)
[2019-02-21] MEDS ORDERED: Communication Order-Pharmacy FS SCH (18:17)
[2019-02-21 19:22] LABS: Hemoglobin A1c 8.7 % (4.0-6.0)
[2019-02-21] MEDS ORDERED: Docusate 100 MG CAP PO SCH (21:00)
[2019-02-21] MEDS ORDERED: Lisinopril 10 MG TAB PO SCH (21:00)
[2019-02-21] MEDS: Atorvastatin Calcium 40 MG TAB PO SCH (22:00)
--- NOTE | 2019-02-22 00:02 | RAD ---
PORTABLE AP CHEST X-RAY: 02/21/19 HISTORY: Presurgical evaluation. COMPARISON: 01/29/19. FINDINGS: The cardiac silhouette and pulmonary vasculature are within normal limits. The lungs remain clear. V ascular calcifications seen in the thoracic aorta. There has been no interval change from prior exam. IMPRESSION: No acute cardiopulmonary process. POS: OFF
[2019-02-22] MEDS: Nitroglycerin 0.4 MG TAB (25 Tab Bottle) SL PRN ×4 (00:42→00:53)
--- NOTE | 2019-02-22 01:19 | CON ---
DATE OF CONSULTATION: 02/21/2019 REQUESTING PHYSICIAN: Dalton Ward MD PRIMARY CARE PHYSICIAN: ANGELA Laurent CHIEF COMPLAINT: Chest pain and shortness of breath. HISTORY OF PRESENT ILLNESS: The patient is a 73-year-old diabetic, nonsmoker. Over the last 2 months, she has noticed that simple spine surgeon have resulted in inordinate fatigue. She even mentioned simply cooking and doing laundry or dishes resulting in her being profoundly tired and even short of breath. Prior to 2 or 3 months ago, she was normally quite active. She tends cattle on a regular basis and normally is not particularly limited. She came to the hospital at the end of last week with fatigue and diarrhea over the previous 2 days. While in the emergency room, she had an episode of chest pressure or pain associated with some shortness of breath. Her initial troponin was elevated at 0.394 and soraya over the next several hours to 2.033. Cardiac catheterization demonstrated severe coronary disease with small coronaries, particularly her circumflex system, but she has a very high-grade ostial left main lesion. The craniocaudal view in particular shows that area is quite hazy and she had ventricularization and 30 to 40 mmHg drop in systolic blood pressures on a consistent basis when engaging the left main. Afterward, she had some chest pain, but that has since resolved. PAST MEDICAL HISTORY: Significant for hypertension and diabetes. MEDICATIONS: Her home medications are; 1. Lisinopril 20/hydrochlorothiazide 25 once a day. 2. Lovastatin 40 mg in the evening. 3. Glipizide 10 mg b.i.d. Currently, she is on; 1. Aspirin. 2. Lipitor 40 mg a day. 3. Neurontin 100 mg b.i.d. 4. Glipizide 10 mg b.i.d. 5. Lisinopril 10 mg at bedtime in addition to her lisinopril/hydrochlorothiazide. 6. One inch of nitroglycerin paste q.i.d. ALLERGIES: SHE REPORTS INTOLERANCE TO METFORMIN AND ACTOS, BOTH OF WHICH CAUSE SWELLING OF HER FEET. REVIEW OF SYSTEMS: Notable for paresthesias and weakness that affects both hands and both feet. When questioned about amaurosis, she at first started talking about what proved to be vision problems related to cataracts that has since been extracted. Her diarrhea has since resolved. PHYSICAL EXAMINATION: GENERAL: She is a small stature lady, in no distress. VITAL SIGNS: She is 5 feet 2 inches and weighs 130-1/4 pounds. HEENT: She has no xanthelasma. NECK: She has a left carotid bruit. No JVD. CHEST: Clear to auscultation. She has regular rate and rhythm without obvious murmur or gallop. ABDOMEN: Soft and nontender. EXTREMITIES: She has palpable radial and dorsalis pedis pulses bilaterally, although her right dorsalis pedis pulse is significantly stronger than her left. She has no clubbing, cyanosis, or edema. No obvious varicosities. LABORATORY DATA: Currently shows a white count of 6.9, hemoglobin 11.2, hematocrit 32.2, platelets 122,000. When she presented to the emergency room, her sodium was 134, otherwise her electrolytes were normal. Her BUN was 30 and creatinine 1.32. Her glucose was 247. With hydration and resolution of her diarrhea, her BUN is 13, creatinine 0.82. Her most recent creatinine this morning was 1.0. Her initial troponin was 0.394 at about 9:30 in the morning on last Wednesday; at 10:30, it was 0.775 and then at 1 in the afternoon, 2.033. Calcium was 9.8, protein 7.4, albumin 4.5. LFTs were normal with the exception of minimally elevated alkaline phosphatase at 112, triglycerides were 89. Cholesterol 116, LDL 62, and HDL 36. DIAGNOSTIC STUDIES: Her chest x-ray was essentially normal on January 29. Her EKG shows anterolateral ST depression. Her echocardiogram shows an EF of 55% to 60% with a mildly enlarged left atrium. Her cardiac catheterization shows a right-dominant system with small coronaries. She has a fairly long 90% proximal right coronary lesion and about a 60% mid right coronary lesion. She has a diffusely diseased left main with very dramatic haziness at the ostium with the aforementioned ventricularization and damping when engaging it. She has a very high-grade mid LAD lesion beyond the very small first diagonal and more modest LAD lesion beyond that. She has a competitive flow in the distal tiny OMs. Her LVEF is around 60%. LV pressure was 131 over -2 with an EDP of 7. Aortic pressure on pullback was 102 over -4. IMPRESSION AND PLAN: A very small statured diabetic lady with an asymptomatic carotid bruit, but very high-grade ostial left main lesion as well as severe LAD and right coronary proper disease. She has preserved left ventricular systolic function. We will plan on coronary artery bypass graft. Job ID: [id number]
[2019-02-22 05:21] LABS: Anion Gap 13 mmol/L (10-20); BUN (Urea Nitrogen) 13 mg/dL (9.8-20.1); Calc. Creatinine Clearance 53 mL/min (70-130); Calcium 9.6 mg/dL (7.8-10.44); Carbon Dioxide 25 mmol/L (23-31); Chloride 102 mmol/L (98-107); Estimated GFR-MDRD 62; Glucose 228 mg/dL (83-110); Potassium 4.2 mmol/L (3.5-5.1); Sodium 136 mmol/L (136-145)
[2019-02-22] MEDS: Lisinopril/Hydrochlorothiazide 20/25 mg Tablet PO SCH (05:41)
--- NOTE | 2019-02-22 06:05 | PDOC.FM ---
- Subjective Subjective: Pt had episode of acute CP overnight. Was given nitro x3 with resolution of sxs. 12-lead EKG and tele did not show any acute changes. Repeat trop downtrended. Pt down for CABG this AM. - Objective MAR Reviewed: Yes Vital Signs & Weight: Vital Signs (12 hours) Temp Pulse Resp BP Pulse Ox 02/22/19 05:41 63 02/22/19 04:00 98.0 F 63 16 145/67 H 98 02/22/19 00:55 97.7 F 88 24 H 159/70 H 100 02/21/19 20:00 98 02/21/19 19:30 98.4 F 67 16 151/66 H 97 Weight Admit Weight 67.558 kg Weight 56.608 kg I&O: 02/20/19 02/21/19 02/22/19 06:59 06:59 06:59 Intake Total 2235 1900 1930 Output Total 1325 1500 3400 Balance 910 400 -1470 Result Diagrams: 02/22/19 14:07 02/22/19 14:07 Phys Exam - Physical Examination Unable to assess as pt in surgery for CABG this AM Dx/Plan (1) NSTEMI (non-ST elevated myocardial infarction) Code(s): I21.4 - NON-ST ELEVATION (NSTEMI) MYOCARDIAL INFARCTION Status: Acute (2) Dehydration Code(s): E86.0 - DEHYDRATION Status: Acute (3) Gastroenteritis Code(s): K52.9 - NONINFECTIVE GASTROENTERITIS AND COLITIS, UNSPECIFIED Status : Acute (4) Chest pain Code(s): R07.9 - CHEST PAIN, UNSPECIFIED Status: Acute - Plan Plan: 73yo F with h/o DMII, HLD, HTN presents with sxs of diarrhea and weakness found to have NSTEMI, now post cardiac cath, planning for CABG #NSTEMI, s/p cath, CABG today - Troponin uptrended to 2, now downtrended to 0.3, nonspecific EKG changes. - Cards consulted, heart cath on 02/21 demonstrated severe 3v disease, EF 50-55% , apprec recs and assistance - CV surg, Dr. Varghese, consulted to eval for bypass and discuss with pt and family, CABG today, apprec rec - episode of CP overnight, trop downtrended, relieved with nitro. EKG unchanged. CABG today. # Viral Gastroenteritis, resolved - sxs resolved, all stool studies normal # DMII - BG 237-277 - Accuchecks Q4H - Mild Sliding Scale Insulin - On home glipizide - Allergy to actos and metformin # HTN - restarted home Lisinopril/HCTZ - Cards increased dose of lisinopril to total 30/25 - BP still midly elevated, will monitor and consider second agent # VIANCA, resolved - Cr: 1.32 -> 0.82 # HLD - continue home meds. Code: Full Diet: NPO for surgery Activity: Ambulate w/ Assist VTE: SCDs Dispo: S/P cardiac cath, severe 3v disease, CABG today. Addendum - Attending - Attending Attestation Date/Time: 02/22/19 4521 I personally discussed the management with Dr. Isabel Rice I agree with the History, Examination, Assessment and Plan documented above with any addition or exceptions noted below. Patient down for CABG during AM rounds she will be transferred to ICU following surgery.
[2019-02-22] MEDS ORDERED: Midazolam HCl 2 mg/2 ml Vial ONE (06:32)
[2019-02-22] MEDS ORDERED: Fentanyl 100 MCG/2 ML VIAL ONE (06:32)
[2019-02-22] MEDS ORDERED: Dexmedetomidine 200 MCG/2 ML VIAL ONE (06:33)
[2019-02-22] MEDS ORDERED: Vecuronium 10 MG VIAL ONE ×2 (06:33→16:16)
[2019-02-22] MEDS ORDERED: Midazolam HCl 5 mg/5 ml Vial ONE (06:33)
[2019-02-22] MEDS ORDERED: Heparin 10,000 UNITS/1 ML VIAL 30,000 UNITS in Sodium Chloride 0.9% 1,000 ML FS SCH (06:45)
[2019-02-22] MEDS ORDERED: Insulin Regular 300 UNITS/3 ML VIAL ONE (08:09)
[2019-02-22] MEDS ORDERED: Albumin 5% 500 ML ONE (10:46)
[2019-02-22] MEDS ORDERED: Morphine 10 MG/ML VIAL ONE (13:07)
[2019-02-22] MEDS: Sodium Chloride 0.9% 1,000 ML IV SCH (14:00)
[2019-02-22] MEDS ORDERED: Hetastarch 6% 500 ML 500 ML IVPB PRN (14:01)
[2019-02-22] MEDS ORDERED: Guaifenesin DM 100-10/5 ML UDCUP PO PRN (14:01)
[2019-02-22] MEDS ORDERED: hydrALAZINE 20 MG/ML VIAL SLOW IVP PRN (14:01)
[2019-02-22] MEDS ORDERED: Bisacodyl 10 MG SUPP PR PRN (14:01)
[2019-02-22] MEDS ORDERED: HYDROcodone/Acetaminophen 5/325 mg Tablet PO PRN ×2 (14:01)
[2019-02-22] MEDS ORDERED: Post-Op Insulin Drip Protocol IVPB ONE (14:01)
[2019-02-22] MEDS ORDERED: Mag-Al 1200 mg/1200 mg/30 ML UDCUP PO PRN (14:01)
[2019-02-22] MEDS ORDERED: Fentanyl 100 MCG/2 ML VIAL SLOW IVP PRN (14:01)
[2019-02-22] MEDS ORDERED: Nitroglycerin 50 MG/250 ML BOT 250 ML IVPB PRN (14:01)
[2019-02-22] MEDS ORDERED: niCARdipine 25 MG in Sodium Chloride 0.9% 250 ML 250 ML IVPB PRN (14:01)
[2019-02-22] MEDS ORDERED: Acetaminophen 325 MG TAB PO PRN (14:01)
[2019-02-22] MEDS ORDERED: Promethazine HCl 25 MG/ML VIAL IM PRN (14:01)
[2019-02-22] MEDS ORDERED: Bisacodyl 5 MG TAB PO PRN (14:01)
[2019-02-22] MEDS ORDERED: Norepinephrine 8 MG/0.9% NS 250 ML IVPB PRN (14:01)
[2019-02-22 14:18] LABS: Actual Bicarbonate (HCO3a) 19.9 mEq/L (22-28); Base Excess (BEa) -3.5 mEq/L (-2.0 to +3.0); CO2 Tension 29.7 mmHg (35.0-45.0); Calcium, Ionized 1.07 mmol/L (1.12-1.30); Carboxyhemoglobin (COHb) 0.6 gm% (0.0-3.0); Hemoglobin (Hb) 9.2 g/dL (12.0-16.0); O2 Tension (PaO2) 104.7 mmHg (> 70.0); Potassium - ABG Lab 3.04 mmol/L (3.70-5.30); pH, Arterial 7.44 (7.35-7.45)
[2019-02-22] MEDS ORDERED: Dextrose 50% Abboject 50 ML SYRINGE SLOW IVP PRN (14:18)
[2019-02-22] MEDS ORDERED: Dextrose 5% in Water 1,000 ML IV PRN (14:18)
[2019-02-22] MEDS ORDERED: HUMULIN R 100 UNITS in Sodium Chloride 0.9% 100 ML IVPB SCH (14:18)
[2019-02-22 14:19] LABS: ALV-art Gradient 285.975 (0-20); Puncture Site ALINE
--- NOTE | 2019-02-22 14:26 | RAD ---
XR Chest 1 View Portable HISTORY: Postop open heart surgery, respiratory failure COMPARISON: 02/21/2019 FINDINGS: Interval changes of median sternotomy are seen. There is been interval placement of endotra cheal tube with tip at the level of the clavicular heads. Right-sided chest tube and mediastinal drains have been placed in the interim. A right subclavian central line is noted with tip in the proj ection of the cavoatrial junction. There is atelectatic change at the left lung base. No pneumothoraces are seen.
[2019-02-22 14:29] LABS: INR-International Normal Ratio 1.5
[2019-02-22 14:30] LABS: PTT 33.6 SEC (22.9-36.1)
[2019-02-22 14:31] LABS: #Eosinphils 0.1 thou/uL (0.0-0.7); #Lymphocytes 0.9 thou/uL (1.20-3.40); #Monocytes 0.9 thou/uL (0.11-0.59); #Neutrophils 8.6 thou/uL (1.40-6.50); %Eosinophils 0.6 % (0.0-10.0); %Lymphocytes 8.7 % (21.0-51.0); %Monocytes 8.8 % (0.0-10.0); %Neutrophils 81.9 % (42.0-75.0); Hemoglobin 9.1 g/dL (12.0-16.0); Mean Corpuscular HGB CONC 34.5 g/dL (32.0-36.0); Mean Corpuscular Hemoglobin 32.2 pg (27.0-31.0); Mean Corpuscular Volume 93.4 fL (78.0-98.0); Mean Platelet Volume 9.7 fL (7.4-10.4); Platelet Count 81 thou/uL (130-400); RBC Distribution Width 11.4 % (11.5-14.5); Red Blood Cell (RBC) Count 2.81 mill/uL (4.20-5.40); White Blood Cell (WBC) Count 10.4 thou/uL (4.8-10.8)
[2019-02-22 14:39] LABS: Band 24 % (5-11); Eosinophils 1 % (0-10); Lymphocytes 9 % (21-51); MDiff Complete? YES; Metamyelocyte 1 % (0-0); Monocytes 7 % (0-10); Neutrophil 58 % (42-75); Ovalocytes SLIGHT = 2-5 cells (100X) (0-1/hpf); Platelet Morphology Comment Appears Decreased; Polychromasia SLIGHT = 2-3 cells (100X) (0-2/hpf)
[2019-02-22 14:52] LABS: Anion Gap 9 mmol/L (10-20); BUN (Urea Nitrogen) 10 mg/dL (9.8-20.1); Calc. Creatinine Clearance 71 mL/min (70-130); Calcium 7.2 mg/dL (7.8-10.44); Carbon Dioxide 21 mmol/L (23-31); Chloride 116 mmol/L (98-107); Estimated GFR-MDRD Greater than 90; Glucose 66 mg/dL (83-110); Sodium 143 mmol/L (136-145)
[2019-02-22] MEDS: Potassium Chloride 20 MEQ/100 ML PREMIX BAG IVPB PRN ×2 (15:10→21:43)
[2019-02-22] MEDS ORDERED: Papaverine 60 MG/2 ML VIAL ONE (16:16)
[2019-02-22] MEDS ORDERED: Ondansetron PF 4 MG/2 ML Vial ONE (16:16)
[2019-02-22] MEDS ORDERED: Ketorolac Tromethamine 30 MG/ML VIAL ONE (16:16)
[2019-02-22] MEDS ORDERED: Heparin 30,000 units/30 ml VIAL ONE (16:16)
[2019-02-22] MEDS ORDERED: Potassium Chloride 60 MEQ/30 ML VIAL ONE (16:16)
[2019-02-22] MEDS ORDERED: Heparin 5,000 UNITS/ML VIAL ONE (16:16)
[2019-02-22] MEDS ORDERED: Dexamethasone 20 MG/5 ML VIAL ONE (16:16)
[2019-02-22] MEDS ORDERED: Norepinephrine 4 MG/4 ML VIAL ONE (16:16)
[2019-02-22] MEDS ORDERED: Aminocaproic Acid 5 GM/20 ML VIAL ONE (16:16)
[2019-02-22] MEDS ORDERED: Sodium Bicarb 50 MEQ/50 ML VIAL ONE (16:16)
[2019-02-22] MEDS ORDERED: Protamine Sulfate 250 MG/25 ML VIAL ONE (16:16)
[2019-02-22] MEDS ORDERED: ePHEDrine 50 MG/ML VIAL ONE (16:16)
[2019-02-22] MEDS ORDERED: PHENYLEPHRINE-NS 100 MCG/ML 10 ML SYRINGE ONE (16:16)
[2019-02-22] MEDS ORDERED: Calcium Chloride 1 GM/10 ML Abboject SYRINGE ONE (16:16)
[2019-02-22] MEDS ORDERED: Thrombin 5000 UNITS/5 ML VIAL ONE (16:16)
[2019-02-22] MEDS ORDERED: Cardioplegic Soln 1,000 ML BAG ONE (16:16)
[2019-02-22] MEDS ORDERED: Magnesium 5 GM/10 ML VIAL ONE (16:16)
[2019-02-22] MEDS ORDERED: Nitroglycerin 50 MG/250 ML BOT ONE (16:16)
[2019-02-22] MEDS ORDERED: Lidocaine 2% PF 100 mg/5 ml Syringe ONE (16:16)
[2019-02-22] MEDS ORDERED: Mannitol 12.5 GM/50 ML ONE (16:16)
--- NOTE | 2019-02-22 17:30 | OP ---
DATE OF PROCEDURE: 02/22/2019 PROCEDURES PERFORMED: Coronary artery bypass grafting x2 with left internal mammary artery to the distal left anterior descending and reverse greater saphenous vein graft from the aorta to the distal right coronary artery. PREOPERATIVE DIAGNOSIS: Left main coronary artery disease with postinfarction angina. POSTOPERATIVE DIAGNOSIS: Left main coronary artery disease with postinfarction angina. ANESTHESIA: General endotracheal anesthesia. INDICATIONS: The patient is a 73-year-old diabetic woman with decreasing exercise tolerance and increasing dyspnea on exertion. She presented to the hospital with complaints of weakness and diarrhea and while in the emergency room, had chest pain and shortness of breath and ruled in for myocardial infarction. She was found to have severe coronary artery disease including a very high-grade ostial left main lesion, but preserved left ventricular function. She has recovered from her diarrhea and has had some post infarction angina and is now taken to the operating room for revascularization. FINDINGS: Pump time 116 minutes. Cross-clamp time 89 minutes. About 2.5 to 3 mm good quality left MELANIE, 3 mm somewhat thin-walled saphenous vein. The LAD was grafted near the apex, where it became reasonable quality. It was about a 1 to 1.5 mm vessel and proximal to that, it was diffusely diseased. The obtuse marginal was less than 1 mm and had diffuse stippling that was palpable. The PDA was also a small vessel with diffuse nonpalpable stippling. There was heavy plaque appreciable in the distal right coronary, which ran within the myocardium of the right atrium. The pericardium was closed. NARRATIVE REPORT: After informed consent was obtained, the patient was taken to the operating room, placed in supine position on the operating table. After the induction of general anesthesia, ultrasonographic mapping of her saphenous vein was undertaken. The saphenous vein in the right thigh was somewhat small, but appeared to be reasonable size, but was difficult to followup beyond the mid thigh. It was marked and the patient was placed in Trendelenburg. Her right upper chest was prepped and draped in sterile fashion and a triple lumen central line kit was used by the anesthesiologist to place a right subclavian line. All 3 ports easily aspirated and flushed. The line was secured. The patient's torso, groins, and lower extremities were prepped and draped in sterile fashion. Saphenous vein was exposed a little above the mid thigh on the right side. It was small and somewhat spastic with handling. It was followed proximally and distally. It became quite small just a few centimeters distal to that incision and never got particularly big, but its confluence with the femoral vein proved to be proximal to what could readily be reached through that incision. A counter incision parallel to the right groin crease was made and upon following, it could be appreciated that this vein was either a tributary to the saphenous or represented one of a pair of dual saphenous system a little bit more medially. A larger vein was identified, but after just a few centimeter, it became small as well and by the midthigh, was not only very small what proved to be about 2 mm or even less, it was very thin walled. The more anterolateral of those branches proved to dilate up better and appeared to be of better quality than the majority of the more posterior medial branch. It appeared to be of reasonable length to reach the target coronary and the usable portion of the other branch of the saphenous system was long enough that if necessary could be used to extend that vein graft. Those incisions were closed in layers of subcutaneous and subcuticular Vicryl. A median sternotomy was performed. The right pleural space was widely opened in the course of performing the sternotomy that an MELANIE retractor was put into place and the left internal mammary artery was mobilized as the skeletonized in-situ graft from the level of the xiphoid to a little proximal to the subclavian vein through an extrapleural exposure. The patient was heparinized. The mammary was ligated and divided distally. There was excellent flow through it and it dilated nicely with papaverine. The rent anteriorly near the apex of the pleura was closed and tacked up to the chest wall with Prolene to guard against fluid accumulating in the chest cavity. The mammary bed was inspected for hemostasis. An MELANIE retractor was replaced with a Gil retractor. The pericardium was opened and marsupialized. The aorta was palpated. There was some plaque palpable right posterolaterally at the very base of the root, but the remainder of the intrapericardial aorta in the base of the arch was soft. A double concentric pursestring of 2-0 Ethibond was placed just beyond the pericardial reflection and a single pursestring was placed in the right atrial appendage. Aortic and venous cannulae were inserted and secured by their pursestrings. Cardiopulmonary bypass was instituted and the patient was cooled. A longitudinal slit was made in the pericardium anterior to the left phrenic nerve. The heart was examined. The medial reflections of the left pleura were mobilized. An aortic cross-clamp was applied and cardioplegia was administered through an aortic root needle. When arrest had been achieved, attention was turned to the distal right coronary. The PDA was a very small vessel while there was a suggestion that the distal right could be palpated. It was not visible on the epicardial surface and there were no telltale fat creases. Two different areas were explored, one in the fat pad at the AV groove and one slightly to the left on the undersurface of the RV proper, where palpation suggested the right coronary might reside neither exploration led to the identification of the right coronary. It was instead opted to follow the small posterior descending artery proximally. The right coronary was encountered as it coursed through the myocardium of the right atrium. At the crux, it was reasonably good quality vessel and measured around 1.5 mm, perhaps even to the more anterolateral branch of the saphenous system was reversed and anastomosed to that arteriotomy end-to-side with running Prolene and the anastomosis tested by flushing cold cardioplegia down the graft. The obtuse marginal was reinspected confirming the original impression that it was a small vessel that would be quite problematic about grafting. The LAD was then exposed distally near the apex. It was rather small, but fairly good quality. It was followed proximally until the disease was simply too heavy to contemplate and sizing. At that transition, the LAD was opened in order to control bleeding from the arteriotomy proximally and to assure that the heel and the toe were patent. Once the anastomosis had been constructed, a shunt was placed, while a 1 mm probe could be passed proximally and distally. Reasonably easily a 1.25 mm shunt could not be passed very far at all proximally and even a 1 mm shunt could only be partially inserted at the heel. With this in place, the mammary was spatulated and anastomosed to the LAD with running 7-0 Prolene. The shunt was removed and the suture line was secured. Anticipating that a proximal anastomosis could be done under cross-clamp, the conduct of the operation at that point including placement of the root needle then with that in mind, the length of the graft was such that it required a low enough arteriotomy even that the cross-clamp time at this point was somewhat long and appropriately placed aortotomy for the proximal vein graft anastomosis that would make for a difficult anastomosis with a partial occluding clamp and the size of the vein was such that a conventional arteriotomy would probably be too large for this vein. Additional cardioplegia was administered to distend the aorta. The large portion of the reserved piece of saphenous vein that passed posteromedially was bivalved to create a generous onlay patch at an arteriotomy and then the right coronary graft was brought up along the AV groove and anastomosed to that patch as 1 might do with free mammary. The patient was placed in Trendelenburg and cardioplegia was administered. With the suture line frustrated, the bulldog and the mammary was released and the aortic cross-clamp was very slowly released while the root needle was on suction. The suture line was then secured. De-airing of that small vein was deferred. The bulldog was removed from it. The anastomoses were inspected for hemostasis. A right pleural drain and a posterior pericardial drain were placed bringing both through separate incisions and securing of the skin with suture. Right atrial and right ventricular temporary epicardial pacing wires were placed. When the patient was adequately rewarmed and the cross-clamp had been off for around 15 to 20 minutes, a purse-string was placed around the root needle site and with her ejecting some to help evacuate air. The needle was removed and the pursestring secured. She was then from cardiopulmonary bypass. The aortic and venous cannulae were removed and the pursestring secured. Protamine was administered. When hemostasis was adequate, an anterior mediastinal drain was placed and the pericardium was closed over it with running Vicryl. The cut surfaces of the sternum were treated with vancomycin paste and platelet rich GPS. The sternum was reapproximated with #7 stainless steel wires. The soft tissues were irrigated and treated with platelet poor GPS. The fascia was closed over the wires with running #1 Vicryl. Subcutaneous tissue was closed with 2-0 Vicryl, and the skin was closed with 3-0 Vicryl subcuticular suture. The wounds were dressed and the patient was taken to the intensive care unit in stable condition. Job ID: [id number] [facility]
[2019-02-22] MEDS ORDERED: Norepinephrine 8 MG in Dextrose 5% in Water 242 ML IVPB PRN (20:02)
[2019-02-22 20:31] LABS: Actual Bicarbonate (HCO3a) 18.2 mEq/L (22-28); Base Excess (BEa) -4.9 mEq/L (-2.0 to +3.0); CO2 Tension 26.6 mmHg (35.0-45.0); Carboxyhemoglobin (COHb) 0.5 gm% (0.0-3.0); Hemoglobin (Hb) 8.7 g/dL (12.0-16.0); O2 Tension (PaO2) 130.5 mmHg (> 70.0); pH, Arterial 7.45 (7.35-7.45)
[2019-02-22 20:32] LABS: Puncture Site ALINE
[2019-02-22 20:56] LABS: Hemoglobin 8.5 g/dL (12.0-16.0)
[2019-02-22 21:09] LABS: Potassium 3.3 mmol/L (3.5-5.1)
[2019-02-22] MEDS: Famotidine/PF 20 mg/2ml Vial SLOW IVP SCH (21:17)
[2019-02-22] MEDS: Ondansetron PF 4 MG/2 ML Vial IVP PRN (21:17)
[2019-02-22] MEDS ORDERED: Propofol 1,000 MG/100 ML VIAL IV ONE (22:58)
[2019-02-22] MEDS ORDERED: Propofol BOLUS 1,000 MG/100 ML VIAL IV PRN (23:01)
[2019-02-22] MEDS ORDERED: Fentanyl BOLUS 250 ML IVPB PRN (23:01)
[2019-02-22] MEDS ORDERED: DISCONTINUE PREVIOUS NARCOTIC PAIN MEDICATIONS AND BENZODIAZEPINES FS SCH (23:01)
[2019-02-22] MEDS ORDERED: Morphine 2 MG/ML SYRINGE SLOW IVP PRN (23:01)
[2019-02-22] MEDS ORDERED: Propofol 1,000 MG/100 ML VIAL IV PRN (23:01)
[2019-02-22] MEDS ORDERED: Lorazepam 2 MG/ML VIAL SLOW IVP PRN (23:01)
[2019-02-22] MEDS ORDERED: fentaNYL Citrate/PF 2,000 MCG in Sodium Chloride 0.9% 60 ML IV SCH (23:01)
[2019-02-23] MEDS: Fentanyl 100 MCG/2 ML VIAL SLOW IVP PRN ×2 (00:25→03:42)
[2019-02-23 04:28] LABS: #Lymphocytes 1.7 thou/uL (1.20-3.40); #Monocytes 1.9 thou/uL (0.11-0.59); #Neutrophils 10.5 thou/uL (1.40-6.50); %Basophils 0.3 % (0.0-1.0); %Eosinophils 0.1 % (0.0-10.0); %Monocytes 13.6 % (0.0-10.0); Hemoglobin 8.5 g/dL (12.0-16.0); Mean Corpuscular HGB CONC 35.6 g/dL (32.0-36.0); Mean Corpuscular Hemoglobin 33.2 pg (27.0-31.0); Mean Corpuscular Volume 93.3 fL (78.0-98.0); Mean Platelet Volume 10.5 fL (7.4-10.4); Platelet Count 107 thou/uL (130-400); RBC Distribution Width 11.6 % (11.5-14.5); Red Blood Cell (RBC) Count 2.55 mill/uL (4.20-5.40); White Blood Cell (WBC) Count 14.1 thou/uL (4.8-10.8)
[2019-02-23 04:51] LABS: Anion Gap 9 mmol/L (10-20); BUN (Urea Nitrogen) Less than 4 mg/dL (9.8-20.1); Calc. Creatinine Clearance 84 mL/min (70-130); Calcium 8.3 mg/dL (7.8-10.44); Carbon Dioxide 19 mmol/L (23-31); Chloride 117 mmol/L (98-107); Estimated GFR-MDRD Greater than 90; Glucose 78 mg/dL (83-110); Potassium 3.5 mmol/L (3.5-5.1); Sodium 141 mmol/L (136-145)
[2019-02-23] MEDS: Sodium Chloride 0.9% 1,000 ML IV SCH ×2 (04:56→18:26)
[2019-02-23] MEDS: Ondansetron PF 4 MG/2 ML Vial IVP PRN ×2 (05:17→15:57)
--- NOTE | 2019-02-23 05:20 | PDOC.FM ---
- Subjective Subjective: S/p CABG on 02/22, POD#1. Did well overnight until approx 1920 when pt was transitioned to CPAP from Vent, had apneic episodes, transitioned back to SIMV on vent. Repeat CPAP trial at 2200 resulted in pt hang in 20s, external vent paced. CV surg was notified who had pt placed back on vent SIMV. This morning external pace was changed to atrial pacing. Currently pt doing well, VSS, opens eyes spontaneously. Resting comfortably. - Objective MAR Reviewed: Yes Vital Signs & Weight: Vital Signs (12 hours) Temp Pulse Resp BP Pulse Ox 02/23/19 02:13 67 99/34 L 02/23/19 02:00 97.9 F 14 02/23/19 00:00 12 02/22/19 22:55 71 128/44 L 02/22/19 22:01 74 100/40 L 02/22/19 22:00 21 H 02/22/19 20:38 74 102/49 L 02/22/19 19:21 71 114/43 L 02/22/19 19:00 97.8 F 24 H 100 02/22/19 18:46 72 112/46 L 02/22/19 18:00 97.6 F 12 Weight Admit Weight 58.5 kg Weight 58.4 kg Most Recent Monitor Data Heart Rate from ECG 66 NIBP 106/42 NIBP BP-Mean 63 Respiration from ECG 19 SpO2 100 I&O: 02/21/19 02/22/19 02/23/19 06:59 06:59 06:59 Intake Total 1900 1930 936.5 Output Total 1500 3400 1200 Balance 400 -1470 -263.5 Result Diagrams: 02/23/19 03:40 02/23/19 03:40 Phys Exam - Physical Examination Constitutional: NAD HEENT: moist MMs ET tube in place, opens eyes spontaneously Neck: supple Right IJ in place Respiratory: no wheezing, no rales, no rhonchi, clear to auscultation bilateral Cardiovascular: RRR BL chest tubes in place, serosanguinous fluid Gastrointestinal: soft, non-tender, no distention, positive bowel sounds reno in place Musculoskeletal: no edema, pulses present Dx/Plan (1) NSTEMI (non-ST elevated myocardial infarction) Code(s): I21.4 - NON-ST ELEVATION (NSTEMI) MYOCARDIAL INFARCTION Status: Acute (2) Dehydration Code(s): E86.0 - DEHYDRATION Status: Acute (3) Gastroenteritis Code(s): K52.9 - NONINFECTIVE GASTROENTERITIS AND COLITIS, UNSPECIFIED Status : Acute (4) Chest pain Code(s): R07.9 - CHEST PAIN, UNSPECIFIED Status: Acute - Plan Plan: 73yo F with h/o DMII, HLD, HTN presents with sxs of diarrhea and weakness found to have NSTEMI, severe 3v disease on cath, s/p 2v CABG on 02/22/19. #NSTEMI, s/p 2v CABG POD#1 - Cards consulted, heart cath on 02/21 demonstrated severe 3v disease, EF 50-55% , apprec recs and assistance - CV surg, Dr. Varghese, 2v CABG on 02/23/19, POD#1, apprec rec and assistance - In ICU, intubated on SIMV with settings of: RR 12, TV 500, FiO2 28%, PEEP 5, PS 10, PIP 35 - Did not tolerate CPAP trial overnight, will attempt trial again this morning with plan to extubate today as tolerated - chest tube x2 - serosanguous fluid, on water seal, 100cc from a, 280cc from b - reno in place, yellow urine, 820cc output - Right IJ and art line in place. VSS - external atrial pacing, cont to follow CV recs - Dr. Patino, Pul, consulted, apprec recs and assistance # DMII - BG stable in ICU, on SSI - Accuchecks Q1H - Held home meds - Will cont to monitor. Will need adjustment to DM medications upon extubation and reintroduction of diet # HTN - BP meds held at this time - Lisinopril/HCTZ - Art line in place, BP stable, will cont to monitor and restart meds when appropriate # VIANCA, resolved - Cr: 1.32 -> 0.0.56 # HLD - Holding meds at this time while intubated, will restart post extubation # Viral Gastroenteritis, resolved - sxs resolved, all stool studies normal Code: Full Diet: Currently intubated, CABG diet once appropriate VTE: SCDs GI PPx: Pepcid IVF: NS @75cc/hr Dispo: S/p 2v CABG POD#1, currently intubated in ICU, pending CV surg recommendations and management. Addendum - Attending - Attending Attestation Date/Time: 02/23/19 1710 I personally evaluated the patient and discussed the management with Dr. Rice I agree with the History, Examination, Assessment and Plan documented above with any addition or exceptions noted below. POD #1 s/p CABG patient extubated and doing well.
[2019-02-23] MEDS: Potassium Chloride 20 MEQ/100 ML PREMIX BAG IVPB PRN (06:19)
[2019-02-23 07:18] LABS: Actual Bicarbonate (HCO3a) 14.4 mEq/L (22-28); CO2 Tension 26.4 mmHg (35.0-45.0); Calcium, Ionized 1.09 mmol/L (1.12-1.30); Carboxyhemoglobin (COHb) 1.7 gm% (0.0-3.0); Hemoglobin (Hb) 7.7 g/dL (12.0-16.0); O2 Tension (PaO2) 127.9 mmHg (> 70.0); Potassium - ABG Lab 3.87 mmol/L (3.70-5.30); pH, Arterial 7.36 (7.35-7.45)
[2019-02-23 07:21] LABS: Puncture Site ALINE
[2019-02-23] MEDS ORDERED: Sodium Bicarb 50 MEQ/50 ML VIAL IVP SCH (08:00)
[2019-02-23] MEDS ORDERED: DC Sedation Protocol FS ONE (08:54)
[2019-02-23] MEDS: Aspirin 325 MG TAB PO SCH (09:00)
--- NOTE | 2019-02-23 09:20 | RAD ---
FRONTAL RADIOGRAPH CHEST: Date: 02/23/19 COMPARISON: 02/22/19. HISTORY: Evaluate chest following open heart surgery. FINDINGS: Stable endotracheal tube, sternotomy wires, and mediastinal clips, and right vascular catheter. Right lung appears clear. There is mild increased linear density in the left base suggesting volume loss, improved. Postsurgical drainage catheters overlie the cardiac silhouette inferiorly. Epicardial pacin g leads are suspected as well. IMPRESSION: Postoperative changes as detailed above. Improving left basilar opacity. POS: OFF
[2019-02-23] MEDS: Ketorolac Tromethamine 30 MG/ML VIAL IVP SCH ×3 (09:40→21:23)
[2019-02-23] MEDS: Acetaminophen 1,000 MG in Premix Bag 1 BAG IVPB SCH ×2 (12:06→18:05)
--- NOTE | 2019-02-23 13:44 | CON ---
DATE OF CONSULTATION: HISTORY OF PRESENT ILLNESS: Wendy is a 73-year-old female, intubated in the vent, post-CABG. She has had known history of coronary artery disease and presented to the ER with ongoing chest pain and arm pain. Catheterization revealed severe 3-vessel disease. [id number] myocardial infarction, lateral. On the vent, she is awake, alert, responsive, on CPAP for 30 minutes, appears to be in no distress. Her daughter is at bedside, gives adequate history. The patient is a nonsmoker. No history of pneumonia, asthma, or TB. PAST MEDICAL HISTORY: Diabetes, hypertension, hyperlipidemia. PREVIOUS SURGERIES: . HOME MEDICATIONS: 1. Amlodipine 5. 2. Aspirin 81. 3. Atorvastatin 40. 4. Glipizide 10 twice a day. 5. Onglyza 5 mg a day. ALLERGIES: METFORMIN, ACTOS. REVIEW OF SYSTEMS: Otherwise unobtainable. PHYSICAL EXAMINATION: GENERAL: On the vent. VITAL SIGNS: Pulse 90, blood pressure 127/82, saturation respirations 19. CHEST: No wheezing or crackles. CARDIAC: Normal S1 and S2. No gallops. ABDOMEN: No masses. LABORATORY DATA: White count 54020. Hemoglobin and hematocrit 23, platelet count is 107, it has been low since 12/22. X-ray shows no acute infiltrates. Renal function normal. Blood sugar slightly elevated. She is on Levophed, insulin drip. IMPRESSION: 1. Status post coronary artery bypass graft. 2. Diabetes. 3. Hypertension. 4. High cholesterol. 5. She will be weaned and extubated. 6. Continue supportive care, PT. 7. Restart diet. Nutrition PT. 8. We will follow while in the ICU. 45 minutes of critical care time. Job ID: [id number]
[2019-02-23] MEDS: Famotidine/PF 20 mg/2ml Vial SLOW IVP SCH (21:24)
[2019-02-24] MEDS: Acetaminophen 1,000 MG in Premix Bag 1 BAG IVPB SCH ×3 (00:35→12:21)
[2019-02-24] MEDS: Ketorolac Tromethamine 30 MG/ML VIAL IVP SCH ×4 (04:19→20:45)
[2019-02-24 05:08] LABS: #Basophils 0.1 thou/uL (0.0-0.2); #Lymphocytes 1.5 thou/uL (1.20-3.40); #Monocytes 1.3 thou/uL (0.11-0.59); #Neutrophils 8.7 thou/uL (1.40-6.50); %Basophils 0.5 % (0.0-1.0); %Eosinophils 0.1 % (0.0-10.0); %Lymphocytes 12.9 % (21.0-51.0); %Monocytes 11.1 % (0.0-10.0); %Neutrophils 75.4 % (42.0-75.0); Hemoglobin 9.1 g/dL (12.0-16.0); Mean Corpuscular HGB CONC 34.4 g/dL (32.0-36.0); Mean Corpuscular Hemoglobin 32.4 pg (27.0-31.0); Mean Corpuscular Volume 94.3 fL (78.0-98.0); Mean Platelet Volume 10.5 fL (7.4-10.4); Platelet Count 93 thou/uL (130-400); RBC Distribution Width 12.6 % (11.5-14.5); Red Blood Cell (RBC) Count 2.81 mill/uL (4.20-5.40); White Blood Cell (WBC) Count 11.5 thou/uL (4.8-10.8)
[2019-02-24 05:19] LABS: Anion Gap 11 mmol/L (10-20); BUN (Urea Nitrogen) 21 mg/dL (9.8-20.1); Calc. Creatinine Clearance 63 mL/min (70-130); Calcium 7.6 mg/dL (7.8-10.44); Carbon Dioxide 18 mmol/L (23-31); Chloride 119 mmol/L (98-107); Estimated GFR-MDRD 72; Glucose 142 mg/dL (83-110); Potassium 4.1 mmol/L (3.5-5.1); Sodium 144 mmol/L (136-145)
[2019-02-24 05:34] VITALS: BMI 24.3
--- NOTE | 2019-02-24 06:21 | PDOC.FM ---
- Subjective Subjective: Doing well post-extubation yesterday, no acute events overnight. Alert and answering questions appropriately this morning. States she is in minimal pain. Art line d/c'ed. BL chest tubes and reno in place. - Objective MAR Reviewed: Yes Vital Signs & Weight: Vital Signs (12 hours) Temp Pulse Ox 02/23/19 19:15 100 02/23/19 19:00 99.8 F H Weight Admit Weight 58.5 kg Weight 60.2 kg Most Recent Monitor Data Heart Rate from ECG 90 NIBP 136/57 NIBP BP-Mean 83 Respiration from ECG 20 SpO2 98 I&O: 02/22/19 02/23/19 02/24/19 06:59 06:59 06:59 Intake Total 1930 2289.4 3110.2 Output Total 3400 1285 870 Balance -1470 1004.4 2240.2 Result Diagrams: 02/24/19 04:45 02/24/19 04:45 Radiology Reviewed by me: Yes (EKG: tiny apical R pneumo, worsening LLL opacity) Phys Exam - Physical Examination Constitutional: NAD (resting comfortably, answers questions appropriately) HEENT: moist MMs Neck: supple Respiratory: no wheezing, no rales, no rhonchi, clear to auscultation bilateral Cardiovascular: RRR sternotomy incision clean, dry, and intact Gastrointestinal: soft, non-tender, no distention, positive bowel sounds [place] in place with output 620cc Musculoskeletal: no edema, pulses present Neurological: non-focal Deviation from normal: BL chest tubes in place. A110cc, B 140cc. Dx/Plan (1) NSTEMI (non-ST elevated myocardial infarction) Code(s): I21.4 - NON-ST ELEVATION (NSTEMI) MYOCARDIAL INFARCTION Status: Acute (2) Dehydration Code(s): E86.0 - DEHYDRATION Status: Acute (3) Gastroenteritis Code(s): K52.9 - NONINFECTIVE GASTROENTERITIS AND COLITIS, UNSPECIFIED Status : Acute (4) Chest pain Code(s): R07.9 - CHEST PAIN, UNSPECIFIED Status: Acute - Plan Plan: 73yo F with h/o DMII, HLD, HTN presents with sxs of diarrhea and weakness found to have NSTEMI, severe 3v disease on cath, s/p 2v CABG on 02/22/19. #NSTEMI, s/p 2v CABG POD#2 - Cards consulted, heart cath on 02/21 demonstrated severe 3v disease, EF 50-55% , apprec recs and assistance - CV surg, Dr. Varghese, 2v CABG on 02/23/19, POD#2, apprec rec and assistance - Extubated 02/23 - chest tube x2 - serosanguous fluid, on water seal, 110c from a, 140cc from b - reno in place, straw colored urine, 620cc output - Right IJ in place. Art line discontinued. VSS - external pacer in place, cont to follow CV surg recs - Dr. Patino, Pulm, consulted, apprec recs and assistance - Hb 8.5 -> 9.1 s/p 1u pRBC on 02/23 - CXR tiny apical pneumo on L, CT in place, with increase LLL opacity # DMII - BG stable in ICU, on SSI - Accuchecks Q1H - Held home meds, cont to monitor and adjust as needed # HTN - BP meds held at this time - Lisinopril/HCTZ - Art line discontinued, BP stable, will cont to monitor and restart meds when appropriate # VIANCA, resolved - Cr: 1.32 -> 0.79 # HLD - Holding meds at this time, will restart when appropriate # Viral Gastroenteritis, resolved - sxs resolved, all stool studies normal Code: Full Diet: CABG diet VTE: SCDs GI PPx: Pepcid IVF: NS @75cc/hr Dispo: S/p 2v CABG POD#2, currently in ICU, extubated yesterday, pending CV surg recommendations and management. Addendum - Attending - Attending Attestation Date/Time: 02/24/19 1126 I personally evaluated the patient and discussed the management with Dr. Rice I agree with the History, Examination, Assessment and Plan documented above with any addition or exceptions noted below. POD #2 chest tubes out ,patient appears well some nausea this am continue watch BS and SS per protocol.
[2019-02-24] MEDS ORDERED: Metolazone 5 MG TAB PO SCH (07:00)
[2019-02-24] MEDS ORDERED: Furosemide 40 MG/4 ML VIAL SLOW IVP SCH (07:00)
[2019-02-24] MEDS: Ondansetron PF 4 MG/2 ML Vial IVP PRN (07:34)
--- NOTE | 2019-02-24 07:51 | RAD ---
Portable frontal chest radiograph: 02/24/2019 COMPARISON: 02/23/2019 HISTORY: Evaluate chest following open heart surgery FINDINGS: Increased pleural and parenchymal opacity noted within the left lung base, slightly worsene d when compared to the prior exam. The endotracheal tube has been removed. Drainage catheters overlie the epigastric region/lower cardiac silhouette as well as the lateral aspect of the right hem ithorax. Probable tiny apical pneumothorax noted on the right. Stable right vascular catheter. IMPRESSION: Probable tiny apical pneumothorax on the right with right chest tube in place. Increased density in the left lung base, slightly worsened, suggesting volume loss.
--- NOTE | 2019-02-24 08:31 | PRG ---
DATE OF SERVICE: 02/24/2019 SUBJECTIVE: Aditya White this morning, post CABG, extubated. She is doing well. She is less short of breath. Still has some vague chest pain. She has a large chest tube on the right side, left lung atelectatic changes. OBJECTIVE: VITAL SIGNS: Sats are 100%, pulse 62, blood pressure 138/80, respiratory rate 18. CHEST: No wheezing or crackles. CARDIAC: Normal S1, S2. No gallops. ABDOMEN: No masses. LABORATORY DATA: Unremarkable. Bicarb is 18. Lytes are normal. H and H 9 and 26 and platelet count is 93. IMPRESSION: Status post coronary artery bypass grafting, thrombocytopenia, respiratory failure, severe deconditioning, and diabetes. She is stable. Continue PT. Supportive care. Disposition as per Cardiology. Job ID: [id number]
[2019-02-24] MEDS: Sodium Chloride 0.9% 1,000 ML IV SCH ×2 (08:33→11:08)
[2019-02-24] MEDS: Aspirin 325 MG TAB PO SCH (08:54)
[2019-02-24] MEDS: Isosorbide Mononitrate (ER) 30 MG TAB PO SCH (08:54)
[2019-02-24] MEDS: Insulin Regular 300 UNITS/3 ML VIAL SC PRN ×2 (09:22→10:32)
--- NOTE | 2019-02-24 10:12 | EKG ---
Test Reason : STAT Blood Pressure : / mmHG Vent. Rate : 085 BPM Atrial Rate : 085 BPM P-R Int : 174 ms QRS Dur : 086 ms QT Int : 412 ms P-R-T Axes : 052 030 091 degrees QTc Int : 490 ms Sinus rhythm with occasional Premature ventricular complexes Prolonged QT Abnormal ECG Confirmed by NATHAN CRUZ, JOSEP ([id number]) on 02/24/2019 10:11:34 AM Referred By: JIL Confirmed By:JOSEP EVANS MD
[2019-02-24] MEDS: Sodium Chloride 0.45% 1,000 ML IV SCH (13:21)
[2019-02-24] MEDS: Artificial Tears 18 DROP/0.9 ML EA EYE PRN (14:15)
[2019-02-24] MEDS: Atorvastatin Calcium 20 MG TAB PO SCH (20:44)
[2019-02-24] MEDS: Famotidine/PF 20 mg/2ml Vial SLOW IVP SCH (20:44)
[2019-02-25] MEDS: Sodium Chloride 0.45% 1,000 ML IV SCH (02:27)
[2019-02-25] MEDS: Ketorolac Tromethamine 30 MG/ML VIAL IVP SCH ×2 (02:29→09:44)
[2019-02-25 04:54] LABS: #Basophils 0.1 thou/uL (0.0-0.2); #Lymphocytes 1.8 thou/uL (1.20-3.40); #Monocytes 0.8 thou/uL (0.11-0.59); #Neutrophils 7.4 thou/uL (1.40-6.50); %Basophils 0.5 % (0.0-1.0); %Eosinophils 0.3 % (0.0-10.0); %Lymphocytes 17.4 % (21.0-51.0); %Monocytes 8.4 % (0.0-10.0); %Neutrophils 73.3 % (42.0-75.0); Hemoglobin 8.8 g/dL (12.0-16.0); Mean Corpuscular HGB CONC 34.4 g/dL (32.0-36.0); Mean Corpuscular Hemoglobin 32.9 pg (27.0-31.0); Mean Corpuscular Volume 95.7 fL (78.0-98.0); Mean Platelet Volume 11.2 fL (7.4-10.4); Platelet Count 96 thou/uL (130-400); RBC Distribution Width 12.6 % (11.5-14.5); Red Blood Cell (RBC) Count 2.66 mill/uL (4.20-5.40)
[2019-02-25 04:58] LABS: Anion Gap 9 mmol/L (10-20); BUN (Urea Nitrogen) 31 mg/dL (9.8-20.1); Calc. Creatinine Clearance 56 mL/min (70-130); Calcium 7.8 mg/dL (7.8-10.44); Carbon Dioxide 21 mmol/L (23-31); Chloride 116 mmol/L (98-107); Estimated GFR-MDRD 65; Glucose 148 mg/dL (83-110); Potassium 3.8 mmol/L (3.5-5.1); Sodium 142 mmol/L (136-145)
[2019-02-25] MEDS: Potassium Chloride 20 MEQ/100 ML PREMIX BAG IVPB PRN (05:32)
[2019-02-25] MEDS: Artificial Tears 18 DROP/0.9 ML EA EYE PRN (05:33)
--- NOTE | 2019-02-25 05:34 | PDOC.FM ---
- Subjective Subjective: Doing well this morning. Pain well-controlled. Mild nausea controlled with zofran. Sitting up in chair and working with PT. Tolerating PO liquids. Denies any CP, SOB, n/v. Mild constipation. Eager to keep working with PT and build up strength. - Objective Vital Signs & Weight: Vital Signs (12 hours) Temp Pulse Ox 02/25/19 04:00 97.9 F 02/25/19 00:00 98.9 F 02/24/19 19:19 100 02/24/19 19:00 98.4 F Weight Admit Weight 58.5 kg Weight 61.7 kg Most Recent Monitor Data Heart Rate from ECG 73 NIBP 122/56 NIBP BP-Mean 78 Respiration from ECG 20 SpO2 100 I&O: 02/23/19 02/24/19 02/25/19 06:59 06:59 06:59 Intake Total 2289.4 3110.2 1470 Output Total 0690 779 7997 Balance 1004.4 2165.2 185 Result Diagrams: 02/25/19 03:40 02/25/19 03:40 Radiology Reviewed by me: Yes (CXR - small apical R pneumo, slightly larger than yesterday) Phys Exam - Physical Examination Constitutional: NAD (resting comfortably in beside chair) HEENT: moist MMs Neck: supple Respiratory: no wheezing, no rales, no rhonchi, clear to auscultation bilateral Cardiovascular: RRR Chest mildly TTP. Sternotomy incision clean, dry, intact Gastrointestinal: soft, non-tender, no distention, positive bowel sounds Musculoskeletal: no edema, pulses present Neurological: non-focal Dx/Plan (1) NSTEMI (non-ST elevated myocardial infarction) Code(s): I21.4 - NON-ST ELEVATION (NSTEMI) MYOCARDIAL INFARCTION Status: Acute (2) Dehydration Code(s): E86.0 - DEHYDRATION Status: Acute (3) Gastroenteritis Code(s): K52.9 - NONINFECTIVE GASTROENTERITIS AND COLITIS, UNSPECIFIED Status : Acute (4) Chest pain Code(s): R07.9 - CHEST PAIN, UNSPECIFIED Status: Acute - Plan Plan: Plan: 73yo F with h/o DMII, HLD, HTN presents with sxs of diarrhea and weakness found to have NSTEMI, severe 3v disease on cath, s/p 2v CABG on 02/22/19. #NSTEMI, s/p 2v CABG POD#3 - Cards consulted, heart cath on 02/21 demonstrated severe 3v disease, EF 50-55% , apprec recs and assistance - CV surg, Dr. Varghese, 2v CABG on 02/23/19, POD#3, apprec rec and assistance - Extubated 02/23 - chest tube x2 removed 02/24 - reno in place, straw colored urine, 1285cc output - Right IJ in place. Art line discontinued 02/24. VSS - external pacer in place, cont to follow CV surg recs, transferring to tele today - Dr. Patino, Pulm, consulted, apprec recs and assistance - Hb stable at 8.8, s/p 1u pRBC on 02/23 - CXR small R apical pneumo, slightly larger than pervious exam, VSS and not SOB , will monitor and repeat CXR in AM #Hyperchloremic metabolic alkalosis, resolving - Yesterday Na 144, Cl 119, HCO3 18. Likely 2/2 large volume NS - changed to 1/2NS @75cc/hr yesterday, labs improved to Na 142, Cl 116, HCO3 21 - will cont to monitor, d/c IVF # DMII - BG stable in ICU, on SSI - Accuchecks Q1H - Held home meds, cont to monitor and adjust as needed # HTN - BP meds held at this time - Lisinopril/HCTZ - Art line discontinued, BP stable, will cont to monitor and restart meds when appropriate # VIANCA, resolved - Cr: 1.32 -> 0.86 # HLD - Holding meds at this time, will restart when appropriate # Viral Gastroenteritis, resolved - sxs resolved, all stool studies normal Code: Full Diet: CABG diet VTE: SCDs GI PPx: Pepcid IVF: SL Dispo: S/p 2v CABG POD#3, currently in ICU, extubated yesterday, pending CV surg recommendations and management. Transfer to Tele today.
[2019-02-25] MEDS ORDERED: Acetaminophen 650 MG/20.3 ML UDCUP PO PRN (06:12)
[2019-02-25] MEDS: Ondansetron PF 4 MG/2 ML Vial IVP PRN (07:52)
--- NOTE | 2019-02-25 08:55 | RAD ---
Portable frontal chest radiograph: 02/25/2019 COMPARISON: 02/24/2019 HISTORY: Status post open-heart surgery FINDINGS: Right chest tube has been removed. Small right pneumothorax in the lung apex again noted, d ifficult to fully characterize superiorly secondary to overlying osseous structures and stable right vascular catheter. Midline sternotomy wires are present. No left-sided pneumothorax. Hazy airsp raffi disease noted in the left lung base, nonspecific. IMPRESSION: Small pneumothorax in the right lung apex. It is probably slightly larger than on the kina dy performed 02/24/2019. Right chest tube has been removed. Continued follow-up advised. Results were called to Yuly, the covering CCU nurse for this patient at 8:53 AM 02/25/2019.
[2019-02-25] MEDS: Aspirin 325 MG TAB PO SCH (09:44)
[2019-02-25] MEDS: Isosorbide Mononitrate (ER) 30 MG TAB PO SCH (09:44)
[2019-02-25] MEDS ORDERED: Bisacodyl 10 MG SUPP PR PRN (09:52)
[2019-02-25] MEDS ORDERED: Artificial Tears 18 DROP/0.9 ML EA EYE PRN (09:52)
[2019-02-25] MEDS ORDERED: Dextrose 50% Abboject 50 ML SYRINGE SLOW IVP PRN (09:52)
[2019-02-25] MEDS ORDERED: Dextrose 5% in Water 1,000 ML IV PRN (09:52)
[2019-02-25] MEDS ORDERED: Zolpidem Tartrate 5 MG TAB PO PRN (09:52)
[2019-02-25] MEDS ORDERED: Mineral Oil ENEMA PR PRN (09:52)
[2019-02-25] MEDS ORDERED: Mag-Al 1200 mg/1200 mg/30 ML UDCUP PO PRN (09:52)
[2019-02-25] MEDS ORDERED: Nitroglycerin 0.4 MG TAB (25 Tab Bottle) SL PRN (09:52)
[2019-02-25] MEDS ORDERED: diphenhydrAMINE 25 MG CAP PO PRN (09:52)
[2019-02-25] MEDS ORDERED: Bisacodyl 5 MG TAB PO PRN (09:52)
[2019-02-25] MEDS ORDERED: Guaifenesin DM 100-10/5 ML UDCUP PO PRN (09:52)
[2019-02-25] MEDS ORDERED: Furosemide 40 MG TAB PO SCH ×2 (10:15→10:45)
[2019-02-25] MEDS: Metoclopramide HCl 10 MG/2 ML VIAL IVP SCH ×3 (10:38→20:46)
[2019-02-25] MEDS ORDERED: traMADol HCl 50 MG TAB PO PRN ×2 (10:41→10:42)
[2019-02-25] MEDS: Insulin Regular 300 UNITS/3 ML VIAL SC PRN (11:37)
--- NOTE | 2019-02-25 15:15 | PRG ---
DATE OF SERVICE: 02/25/2019 Please see the note from Dr. Rice, for which I agree. The patient is seen, evaluated, discussed and examined with the residents by bedside. This is a 73-year-old female, postop day #3, status post coronary artery bypass graft surgery. It sounds like chest tube was pulled yesterday, still small right-sided pleural effusion, but pretty much asymptomatic. She is having some nausea and vomiting this morning and noticed that she does have history of her gallbladder being fairly large, but otherwise not complicated postoperative care. Diabetes has been controlled and it sounds like we could probably can be able to get her up to the floor for continued care. Obviously, if the nausea and vomiting worsen, we may have to look into the gallbladder, but I think it is probably just postoperative pain medications, etc, are now causing some of these issues. Job ID: [id number]
[2019-02-25] MEDS: Famotidine/PF 20 mg/2ml Vial SLOW IVP SCH (20:42)
[2019-02-25] MEDS: Atorvastatin Calcium 20 MG TAB PO SCH (20:42)
[2019-02-26] MEDS: Metoclopramide HCl 10 MG/2 ML VIAL IVP SCH ×4 (03:32→20:44)
--- NOTE | 2019-02-26 06:33 | PDOC.FM ---
- Subjective Subjective: No acute events overnight, slept well. Does endorse mild chest soreness and burning sensation. Also endorses burning sensation with urination since reno removal. Has not taken any pain medications from nurse. Denies any fever/chills , SOB. Mild nausea, controlled with zofran. Sitting up with PT. Tolerating PO liquids well. - Objective MAR Reviewed: Yes Vital Signs & Weight: Vital Signs (12 hours) Temp Pulse Resp BP Pulse Ox 02/26/19 04:00 97.8 F 74 14 103/51 L 96 02/26/19 00:00 98.9 F 68 14 111/56 L 95 02/25/19 20:00 98 Weight Admit Weight 58.5 kg Weight 68.039 kg Most Recent Monitor Data Heart Rate from ECG 75 NIBP 139/67 NIBP BP-Mean 91 Respiration from ECG 23 SpO2 100 I&O: 02/24/19 02/25/19 02/26/19 06:59 06:59 06:59 Intake Total 3110.2 2360 672 Output Total 945 1315 150 Balance 2165.2 1045 522 Result Diagrams: 02/25/19 03:40 02/25/19 03:40 EKG Reviewed by me: Yes (tele: NSR) Phys Exam - Physical Examination Constitutional: NAD (resting comfortably) Neck: supple Respiratory: no wheezing, no rales, no rhonchi, clear to auscultation bilateral Cardiovascular: RRR, no significant murmur, no rub sternotomy incision c/d/i Gastrointestinal: soft, non-tender, no distention, positive bowel sounds Musculoskeletal: no edema, pulses present Neurological: non-focal Psychiatric: normal affect Dx/Plan (1) NSTEMI (non-ST elevated myocardial infarction) Code(s): I21.4 - NON-ST ELEVATION (NSTEMI) MYOCARDIAL INFARCTION Status: Acute (2) Dehydration Code(s): E86.0 - DEHYDRATION Status: Acute (3) Gastroenteritis Code(s): K52.9 - NONINFECTIVE GASTROENTERITIS AND COLITIS, UNSPECIFIED Status : Acute (4) Chest pain Code(s): R07.9 - CHEST PAIN, UNSPECIFIED Status: Acute - Plan Plan: 73yo F with h/o DMII, HLD, HTN presents with sxs of diarrhea and weakness found to have NSTEMI, severe 3v disease on cath, s/p 2v CABG on 02/22/19. #NSTEMI, s/p 2v CABG POD#4 - Cards consulted, heart cath on 02/21 demonstrated severe 3v disease, EF 50-55% , apprec recs and assistance - CV surg, Dr. Varghese, 2v CABG on 02/22/19, apprec rec and assistance - Extubated 02/23. Chest tube x2 removed 02/24 - reno 02/22, d/c 02/26 - Right IJ in place. Art line discontinued 02/24. VSS - external pacer in place, cont to follow CV surg recs, transferring to tele yesterday, no acute events overnight - Dr. Patino, Pulm, consulted, apprec recs and assistance - Hb stable at 8.8, s/p 1u pRBC on 02/23 - CXR small R apical pneumo, slightly larger than pervious exam, VSS and not SOB , will monitor and repeat CXR pending this AM #Hyperchloremic metabolic alkalosis, resolving - 02/24 Na 144, Cl 119, HCO3 18. Likely 2/2 large volume NS - changed to 1/2NS @75cc/hr 02/24 labs improved to Na 142, Cl 116, HCO3 21 - will cont to monitor, d/c IVF #Dysuria - irritation 2/2 reno vs UTI - Will obtain UA # DMII - BG stable in ICU, on SSI - Accuchecks Q1H - Held home meds, cont to monitor and adjust as needed # HTN - Imdur started by Cards - Home lisinopril/HCTZ discontinued. Art line d/c'ed. BP stable, will cont to monitor # VIANCA, resolved - Cr: 1.32 -> 0.86 # HLD - cont lipitor # Viral Gastroenteritis, resolved - sxs resolved, all stool studies normal Code: Full Diet: CABG diet VTE: SCDs GI PPx: Pepcid IVF: SL Dispo: S/p 2v CABG POD#4, transferred to tele, improving clinically. Pending CV surg and cards recommendations and management. Apprec assistance.
[2019-02-26] MEDS: Aspirin 325 mg Enteric Coated Tablet PO SCH (08:32)
[2019-02-26] MEDS: Multivitamin W/ Minerals 1 TAB PO SCH (08:32)
[2019-02-26] MEDS: Furosemide 40 MG TAB PO SCH (08:32)
[2019-02-26] MEDS: Isosorbide Mononitrate (ER) 30 MG TAB PO SCH (08:32)
[2019-02-26] MEDS ORDERED: Multivit, Therapeutic 1 TAB PO SCH (09:00)
[2019-02-26 10:15] LABS: Bacteria/HPF 4+ HPF (None Seen); Bilirubin Negative (Negative); Blood, Urine 2+ (Negative); Clarity Extra Turbid (Clear); Glucose, Urine (Dipstick) Normal (Negative); Leukocyte 500 Leu/uL (Negative); Nitrite Negative (Negative); Protein, Urine (Dipstick) 50 mg/dL (Neg-Trace); RBC/HPF 21-50 HPF (0-3); Squamous Epithelial None Seen HPF (0-3); Urobilinogen Normal mg/dL (Less than 2); WBC/HPF Greater than 50 HPF (0-3)
[2019-02-26 10:18] LABS: Urine Culture Reflex Yes Yes
--- NOTE | 2019-02-26 10:26 | RAD ---
PORTABLE CHEST 1 VIEW: Date: 02/26/19 Time: 0752 hours HISTORY: Right apical pneumothorax on previous x-ray. FINDINGS/IMPRESSION: Comparison made with exam from previous day. The previously noted tiny right apical pneumothorax on the previous day's exam is not definitely see n on the current exam. Right-sided subclavian central line remains in place. Changes of median sterno daphnie again seen. The heart size is normal. POS: BABAK
[2019-02-26] MEDS: cefTRIAXone\\ROCEPHIN 1 GM in Sodium Chloride 0.9% 100 ML IVPB SCH (11:20)
--- NOTE | 2019-02-26 15:25 | PDOC.CPN ---
- Subjective Date: 02/26/19 Time: 15:29 Interval history: The pt seen and examined. No overnight events. No cardiac complaints - Objective Allergies/Adverse Reactions: Allergies Allergy/AdvReac Type Severity Reaction Status Date / Time metformin Allergy Verified 06/09/14 04:23 actose Allergy Uncoded 02/17/19 06:55 Visit Medications: Current Medications Al Hydroxide/Mg Hydroxide (Maalox) 30 ml PO Q4H PRN PRN Reason: Indigestion Albuterol/Ipratropium (Duoneb) 3 ml NEB Q6H PRN PRN Reason: SHORTNESS OF BREATH Artificial Tears (Tears Naturale) 0 drop EA EYE PRN PRN PRN Reason: Dry Eyes Aspirin (Ecotrin) 325 mg PO DAILY [facility] Last Admin: 02/26/19 08:32 Dose: 325 mg Atorvastatin Calcium (Lipitor) 20 mg PO HS [facility] Last Admin: 02/25/19 20:42 Dose: 20 mg Bisacodyl (Dulcolax) 10 mg PO Q12H PRN PRN Reason: Constipation Last Admin: 02/25/19 12:46 Dose: 10 mg Bisacodyl (Dulcolax) 10 mg MD Q12H PRN PRN Reason: Constipation Dextrose/Water (Dextrose 50%) 25 gm SLOW IVP PRN PRN PRN Reason: PER HYPOGLYCEMIC PROTOCOL Last Admin: 02/22/19 15:10 Dose: 25 gm Dextrose/Water (Dextrose 50%) 25 gm SLOW IVP PRN PRN PRN Reason: Hypoglycemia Diphenhydramine HCl (Benadryl) 25 mg PO Q6H PRN PRN Reason: Itching & Insomnia or Dixon Abel Famotidine (Pepcid) 20 mg SLOW IVP 2100 [facility] Last Admin: 02/25/19 20:42 Dose: 20 mg Furosemide (Lasix) 40 mg PO DAILY [facility] Stop: 02/27/19 09:01 Last Admin: 02/26/19 08:32 Dose: 40 mg Glucagon (Glucagon) 1 mg SC PRN PRN PRN Reason: PER HYPOGLYCEMIC PROTOCOL Glucagon (Glucagon) 1 mg IM PRN PRN PRN Reason: Hypoglycemia Guaifenesin/Dextromethorphan (Robitussin Dm) 15 ml PO Q4H PRN PRN Reason: Cough Guaifenesin/Dextromethorphan (Robitussin Dm) 15 ml PO Q4H PRN PRN Reason: Cough Dextrose/Water (D5w) 1,000 mls @ 0 mls/hr IV INF PRN PRN Reason: PRN HYPOGLYCEMIC PROTOCOL Dextrose/Water (D5w) 1,000 mls @ 0 mls/hr IV .Q0M PRN PRN Reason: Hypoglycemia Ceftriaxone Sodium 1 gm/ (Sodium Chloride) 100 mls @ 200 mls/hr IVPB Q24HR [facility] Last Admin: 02/26/19 11:20 Dose: 100 mls Insulin Human Regular (Humulin R) 0 units SC .MILD SLIDING SCALE PRN PRN Reason: Mild Correctional Scale Last Admin: 02/25/19 11:37 Dose: 2 unit Iron/Minerals/Multivitamins (Theragran M) 1 tab PO DAILY [facility] Last Admin: 02/26/19 08:32 Dose: 1 tab Isosorbide Mononitrate (Imdur Er) 30 mg PO DAILY [facility] Last Admin: 02/26/19 08:32 Dose: 30 mg Metoclopramide HCl (Reglan) 10 mg IVP Q6H [facility] Stop: 02/27/19 04:01 Last Admin: 02/26/19 08:32 Dose: 10 mg Mineral Oil (Fleet Mineral Oil) 133 ml MD DAILYPRN PRN PRN Reason: Constipation Multivitamins (Theragran) 1 tab PO DAILY [facility] Last Admin: 02/26/19 08:34 Dose: Not Given Nitroglycerin (Nitrostat) 0.4 mg SL Q5MIN PRN PRN Reason: Chest Pain Ondansetron HCl (Zofran) 4 mg IVP Q6H PRN PRN Reason: Nausea/Vomiting Last Admin: 02/25/19 07:52 Dose: 4 mg Sodium Chloride (Flush - Normal Saline) 10 ml IVF Q12HR [facility] Last Admin: 02/26/19 08:32 Dose: 10 ml Tramadol HCl (Ultram) 50 mg PO Q6H PRN PRN Reason: Moderate to Severe Pain (6-10) Last Admin: 02/26/19 08:33 Dose: 50 mg Tramadol HCl (Ultram) 100 mg PO Q6H PRN PRN Reason: Moderate to Severe Pain (6-10) Zolpidem Tartrate (Ambien) 5 mg PO HSPRN PRN PRN Reason: Insomnia Vital Signs & Weight: Vital Signs Temp Pulse Pulse Pulse Resp BP BP 02/26/19 11:16 98.2 F 77 16 02/26/19 10:17 78 76 121/56 L 128/60 02/26/19 08:28 98.4 F 79 17 02/26/19 04:00 97.8 F 74 14 BP BP Pulse Ox 02/26/19 11:16 116/68 98 02/26/19 10:17 02/26/19 08:28 110/52 L 95 02/26/19 04:00 103/51 L 96 Admit Weight 128 lb 15.527 oz Weight 150 lb - Physical Exam General: alert & oriented x3 Neck: supple neck Cardiac: regular rate and rhythm, S1/S2 Lungs: clear to auscultation Neuro: cranial nerve 2-12 intact Abdomen: unremarkable Extremities: no cyanosis Skin: clear Musculoskeletal: normal range of motion - Labs Result Diagrams: 02/25/19 03:40 02/25/19 03:40 Troponin/CKMB CK-MB (CK-2) 21.7 ng/mL (0-6.6) H* 02/17/19 13:06 Troponin I 0.380 ng/mL (< 0.028) H* 02/22/19 02:51 - Telemetry Sinus rhythms and dysrhythmias: sinus rhythm - Assessment/Plan Assessment/Plan: 1. CAD with s/p CABG x2 on 02/22/2019 - On ASA and Statin; will start BBlocker or YELENA/ARB; On Lasix IV x 2 dose for BLE edema; recommend to wear compression stockings 2. HTN - stable 3. DM type 2 - 4. HLD - On Statin 5. Anemia with s/p 1 unit PRBC tx on 02/23/2019 MAR reviewed * Dr Ward's pt
--- NOTE | 2019-02-26 16:36 | CON ---
DATE OF CONSULTATION: Please see note from Dr. Rice, for which I agree. The patient was seen, evaluated, discussed, and examined with the residents by bedside. Postop day 4. A little bit of nausea. A little bit of pain but not bad. Breathing comfortably. Had pneumothorax on the right side after the chest tube was removed yesterday, but not really appreciated on the x-ray today and is pretty much asymptomatic. So, the plan is to continue to follow with somewhat cardiovascular recommends postoperatively and hopefully be able to go to rehab in the next day or two. Job ID: [id number]
[2019-02-26] MEDS: Insulin Regular 300 UNITS/3 ML VIAL SC PRN (16:48)
[2019-02-26] MEDS: Famotidine/PF 20 mg/2ml Vial SLOW IVP SCH (20:44)
[2019-02-26] MEDS: Atorvastatin Calcium 20 MG TAB PO SCH (20:44)
[2019-02-27] MEDS: Metoclopramide HCl 10 MG/2 ML VIAL IVP SCH (04:08)
--- NOTE | 2019-02-27 05:31 | PDOC.FM ---
- Subjective Subjective: Pt is doing well this morning. No acute events overnight. States she has been ambulating with assistance with PT into the hallway and able to use the restroom. Voiding and BM without difficulty. Does endorse some mild GERD sxs, but controlled and improving with meds. Pain is minimal and controlled with pain -medications. Dysuria and resolved. Decreased appetite and mainly wants ice to eat. No fever/chills, SOB, n/v. Eager to continue to build up strength and work with therapy. - Objective MAR Reviewed: Yes Vital Signs & Weight: Vital Signs (12 hours) Temp Pulse Resp BP BP Pulse Ox 02/27/19 03:25 98.6 F 77 18 112/56 L 94 L 02/26/19 23:30 98.7 F 74 18 114/52 L 97 02/26/19 20:00 98.2 F 75 13 118/58 L 97 Weight Admit Weight 58.5 kg Weight 64.637 kg Most Recent Monitor Data Heart Rate from ECG 75 NIBP 139/67 NIBP BP-Mean 91 Respiration from ECG 23 SpO2 100 I&O: 02/25/19 02/26/19 02/27/19 06:59 06:59 06:59 Intake Total 2360 672 820 Output Total 1315 150 Balance 1045 522 820 Result Diagrams: 02/27/19 07:35 02/27/19 07:35 EKG Reviewed by me: Yes (Tele: NSR no acute events) Phys Exam - Physical Examination Constitutional: NAD (resting comfortably in bed) HEENT: moist MMs Neck: supple Respiratory: no wheezing, no rales, no rhonchi, clear to auscultation bilateral Cardiovascular: RRR, no significant murmur, no rub Gastrointestinal: soft, non-tender, no distention, positive bowel sounds Musculoskeletal: no edema, pulses present Neurological: non-focal Psychiatric: normal affect, A&O x 3 Deviation from normal: sternotomy incision c/d/i. Right CL in place, c/d/no erythema. Dx/Plan (1) S/P CABG (coronary artery bypass graft) Code(s): Z95.1 - PRESENCE OF AORTOCORONARY BYPASS GRAFT Status: Acute (2) NSTEMI (non-ST elevated myocardial infarction) Code(s): I21.4 - NON-ST ELEVATION (NSTEMI) MYOCARDIAL INFARCTION Status: Acute (3) Gastroenteritis Code(s): K52.9 - NONINFECTIVE GASTROENTERITIS AND COLITIS, UNSPECIFIED Status : Resolved (4) UTI (urinary tract infection) Status: Acute Qualifiers: Urinary tract infection type: catheter-associated UTI (5) DMII (diabetes mellitus, type 2) Status: Chronic - Plan Plan: 73yo F with h/o DMII, HLD, HTN presents with sxs of diarrhea and weakness found to have NSTEMI, severe 3v disease on cath, s/p 2v CABG on 02/22/19. #NSTEMI, s/p 2v CABG POD#5 - Cards consulted, heart cath on 02/21 demonstrated severe 3v disease, EF 50-55% , apprec recs and assistance - CV surg, Dr. Varghese, 2v CABG on 02/22/19, apprec rec and assistance - Extubated 02/23. Chest tube x2 removed 02/24. Right IJ in place. Art line discontinued 02/24. VSS - CXR from 02/26 demonstrated resolution of small apical R pneumo, VSS, no dyspnea - Donig well this morning, pain controlled, ambulating with PT, tolerating PO - Likely nearing discharge, rehab screen and CM for assistance. Will need continued PT/OT/Cardiac rehab #Catheter Associated UTI - reno removed 02/25. Following day sxs of dysuria - UA dirty, UCx pending - Rocephin Day 2, will transition to PO with Culture results #Acute blood loss Anemia - Hb stable at 9.2, s/p 1u pRBC on 02/23 - acute blood loss 2/2 surgery - VSS, no s/s acute ongoing blood loss, will cont supp iron and Vit C - will need outpatient f/u for continued monitoring #Hyperchloremic metabolic alkalosis, resolved - 02/24 Na 144, Cl 119, HCO3 18. Likely 2/2 large volume NS - changed to 1/2NS @75cc/hr 02/24 labs improved to Na 142, Cl 116, HCO3 21 - labs cont to improved. No IVF. # DMII - BG stable in ICU, on SSI - Accuchecks ACHS. BG 134-164 - Metoformin "allergy" was GI upset, will speak with family on restarting metformin at lose dose and slowly titrating up # HTN - Imdur started by Cards - Home lisinopril/HCTZ discontinued. BP stable, will cont to monitor # VIANCA, resolved - Cr: 1.32 -> 0.86 # HLD - cont lipitor # Viral Gastroenteritis, resolved - sxs resolved, all stool studies normal Code: Full Diet: HH + Glucerna VTE: SCDs GI PPx: Pepcid IVF: SL Dispo: S/p 2v CABG POD#5, transferred to tele, improving clinically. Pending CV surg and cards recommendations and management. Treating UTI and following UCX. CM and rehab screen for placement. Apprec assistance.
[2019-02-27 08:06] LABS: #Eosinphils 0.1 thou/uL (0.0-0.7); #Lymphocytes 1.3 thou/uL (1.20-3.40); #Monocytes 0.7 thou/uL (0.11-0.59); #Neutrophils 5.2 thou/uL (1.40-6.50); %Basophils 0.4 % (0.0-1.0); %Lymphocytes 17.2 % (21.0-51.0); %Monocytes 9.9 % (0.0-10.0); %Neutrophils 71.5 % (42.0-75.0); Hemoglobin 9.2 g/dL (12.0-16.0); Mean Corpuscular HGB CONC 34.8 g/dL (32.0-36.0); Mean Corpuscular Hemoglobin 32.8 pg (27.0-31.0); Mean Corpuscular Volume 94.2 fL (78.0-98.0); Mean Platelet Volume 10.5 fL (7.4-10.4); Platelet Count 148 thou/uL (130-400); RBC Distribution Width 12.3 % (11.5-14.5); Red Blood Cell (RBC) Count 2.82 mill/uL (4.20-5.40); White Blood Cell (WBC) Count 7.3 thou/uL (4.8-10.8)
[2019-02-27 08:26] LABS: Anion Gap 12 mmol/L (10-20); BUN (Urea Nitrogen) 24 mg/dL (9.8-20.1); Calc. Creatinine Clearance 72 mL/min (70-130); Calcium 8.3 mg/dL (7.8-10.44); Carbon Dioxide 21 mmol/L (23-31); Chloride 108 mmol/L (98-107); Estimated GFR-MDRD 80; Glucose 130 mg/dL (83-110); Potassium 3.4 mmol/L (3.5-5.1); Sodium 138 mmol/L (136-145)
[2019-02-27] MEDS ORDERED: Potassium Chloride 20 MEQ TAB PO SCH (09:00)
[2019-02-27] MEDS ORDERED: Famotidine 20 MG TAB PO SCH (09:00)
[2019-02-27] MEDS ORDERED: Ferrous Sulfate 325 MG TAB PO SCH (09:00)
[2019-02-27] MEDS ORDERED: Ascorbic Acid 500 mg Chewable Tablet PO SCH (09:00)
[2019-02-27] MEDS: cefTRIAXone\\ROCEPHIN 1 GM in Sodium Chloride 0.9% 100 ML IVPB SCH (09:43)
[2019-02-27] MEDS: Isosorbide Mononitrate (ER) 30 MG TAB PO SCH (09:44)
[2019-02-27] MEDS: Multivitamin W/ Minerals 1 TAB PO SCH (09:44)
[2019-02-27] MEDS: Aspirin 325 mg Enteric Coated Tablet PO SCH (09:44)
[2019-02-27] MEDS: Furosemide 40 MG TAB PO SCH (09:44)
[2019-02-27 11:43] VITALS: TEMP 98.7
--- NOTE | 2019-02-27 12:33 | PRG ---
DATE OF SERVICE: 02/27/2019 Ms. Burgess is sitting quietly in bed with no distress. She is status post CABG. We are awaiting rehab placement, which hopefully will occur today. Job ID: [id number]
[2019-02-27 14:54] VITALS: BP 148/62
--- NOTE | 2019-02-27 19:40 | DIS ---
DATE OF ADMISSION: 02/17/2019 DATE OF DISCHARGE: 02/27/2019 PRINCIPAL DIAGNOSIS: Left main coronary artery disease. SECONDARY DIAGNOSES: [id number] myocardial infarction, bradycardia, type 2 diabetes mellitus, and urinary tract infection. PROCEDURES PERFORMED: Cardiac catheterization on 02/20/2019, coronary artery bypass grafting x2 with left internal mammary artery to the distal LAD and reverse greater saphenous vein graft from aorta to the distal RCA on 02/22/2019. HISTORY OF PRESENT ILLNESS AND HOSPITAL COURSE: The patient is a 73-year-old diabetic woman, who deliberately runs her blood sugars on the high side, because she feels poorly when her blood sugars fall below 140. 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 On the day of admission, she presented with 2 days of fatigue and diarrhea and while in the emergency room, had an episode of chest pain associated with shortness of breath. Her initial troponin was mildly elevated and soraya over the next several hours and she had a few episodes of similar chest pain while in the hospital awaiting cardiac catheterization following Wednesday. Cardiac catheterization demonstrated severe coronary artery disease and included high-grade ostial left main lesion and she underwent surgical revascularization in spite of the realization that she had a small poor quality vessel. Her LAD was grafted near the apex were approached 1 mm in size. Her distal right coronary artery was bypassed, where it ran in the right atrial intramyocardial position. Her obtuse marginal was too small and diseased to attempt grafting. Her postoperative course was primarily marked for being slow to wake up enough the night of surgery to extubate and early in the morning of postoperative day one, she became profoundly bradycardic requiring pacing. At that point, she had an underlying sinus bradycardia in the mid upper 40s. She improved with first ventricular and then atrial pacing in the use of Levophed to support her blood pressure. She did seem rather frail for the first couple of days postoperatively, but then seemed to turn around and improve because of her frailty and then need for diuresis, her Mcfarland was kept until postoperative day 3. Following removal of her catheter, she had complaints of dysuria prompting urinalysis, which showed pyuria and urine culture grew a gram-negative bacillus, most suggestive of E coli and she was started on Omnicef. Her pacing wires were left in place until ready for discharge. Beta blockade was deferred. Her YELENA inhibitor was held because her blood pressures were not quite high enough to tolerate reinstitution of them. She was started on Imdur 30 mg a day in the anticipation that with what amounted to an incomplete revascularization she is apt to have angina otherwise. She is being discharged home now to complete a week's course of Omnicef. She has a prescription for tramadol for pain. Her glipizide has been switched to metformin 500 mg a day, and she has been started on Isordil 30 mg a day. She is on aspirin a day. She is to resume her statin. Job ID: [id number]
[2019-02-28] MEDS ORDERED: metFORMIN 500 MG TAB PO SCH (08:00)
--- NOTE | 2019-02-28 10:13 | EKG ---
Test Reason : POST CABG Blood Pressure : / mmHG Vent. Rate : 072 BPM Atrial Rate : 072 BPM P-R Int : 188 ms QRS Dur : 098 ms QT Int : 474 ms P-R-T Axes : 071 039 089 degrees QTc Int : 519 ms Normal sinus rhythm Nonspecific ST and T wave abnormality Prolonged QT Abnormal ECG Confirmed by JOSEP EVANS MD ([id number]) on 02/28/2019 10:12:59 AM Referred By: TIFFANY Confirmed By:JOSEP EVANS MD
--- NOTE | 2019-02-28 10:16 | EKG ---
Test Reason : STAT Blood Pressure : / mmHG Vent. Rate : 071 BPM Atrial Rate : 084 BPM P-R Int : 000 ms QRS Dur : 082 ms QT Int : 436 ms P-R-T Axes : 000 022 114 degrees QTc Int : 473 ms Accelerated Junctional rhythm with frequent ventricular-paced complexes Abnormal ECG Confirmed by NATHAN CRUZ, JOSEP ([id number]) on 02/28/2019 10:16:33 AM Referred By: LALA Confirmed By:JOSEP EVANS MD
[2019-02-28 11:16] LABS: Actual Bicarbonate (HCO3a) 19.9 mEq/L (22-28); Analyzer IN Cardio OR; Base Excess (BEa) -0.4 mEq/L (-2.0 to +3.0); Calcium, Ionized 1.16 mmol/L (1.12-1.30); Carboxyhemoglobin (COHb) 0.2 gm% (0.0-3.0); Hemoglobin (Hb) 12.1 g/dL (12.0-16.0); Potassium - ABG Lab 4.07 mmol/L (3.70-5.30)
[2019-02-28 11:22] LABS: Actual Bicarbonate (HCO3a) 22.8 mEq/L (22-28); Analyzer IN Cardio OR; Base Excess (BEa) -1.8 mEq/L (-2.0 to +3.0); CO2 Tension 38.2 mmHg (35.0-45.0); Carboxyhemoglobin (COHb) 0.1 gm% (0.0-3.0); Hemoglobin (Hb) 12.5 g/dL (12.0-16.0); O2 Tension (PaO2) 412.9 mmHg (> 70.0); Potassium - ABG Lab 2.89 mmol/L (3.70-5.30); pH, Arterial 7.39 (7.35-7.45)
[2019-02-28 11:23] LABS: Actual Bicarbonate (HCO3v) 21 mEq/L (22-28); Analyzer IN Cardio OR; Base Excess -4.1 mEq/L (-2.0 to +3.0); Calcium, Ionized 0.99 mmol/L (1.16-1.32); Chloride (ABG LAB) 108 mmol/L (98-106); Hemoglobin (Hb) 6.5 g/dL (11.7-16.1); Potassium - ABG Lab 3.53 mmol/L (3.70-5.30); Sodium 137.1 mmol/L (133-146); pH (venous) 7.39 (7.32-7.43)
[2019-02-28 11:23] LABS: Actual Bicarbonate (HCO3a) 22.6 mEq/L (22-28); Analyzer IN Cardio OR; CO2 Tension 37.8 mmHg (35.0-45.0); Calcium, Ionized 0.98 mmol/L (1.12-1.30); Carboxyhemoglobin (COHb) 0.8 gm% (0.0-3.0); Hemoglobin (Hb) 6.9 g/dL (12.0-16.0); O2 Tension (PaO2) 452.2 mmHg (> 70.0); Potassium - ABG Lab 3.62 mmol/L (3.70-5.30)
[2019-02-28 11:24] LABS: Analyzer IN Cardio OR; Base Excess (BEa) -0.1 mEq/L (-2.0 to +3.0); CO2 Tension 43.1 mmHg (35.0-45.0); Calcium, Ionized 1.04 mmol/L (1.12-1.30); Carboxyhemoglobin (COHb) 0.8 gm% (0.0-3.0); Hemoglobin (Hb) 6.8 g/dL (12.0-16.0); O2 Tension (PaO2) 440.7 mmHg (> 70.0); Potassium - ABG Lab 3.69 mmol/L (3.70-5.30); pH, Arterial 7.38 (7.35-7.45)
[2019-02-28 11:24] LABS: Actual Bicarbonate (HCO3a) 27.1 mEq/L (22-28); Analyzer IN Cardio OR; Base Excess (BEa) 2.4 mEq/L (-2.0 to +3.0); CO2 Tension 42.8 mmHg (35.0-45.0); Calcium, Ionized 1.06 mmol/L (1.12-1.30); Carboxyhemoglobin (COHb) 0.8 gm% (0.0-3.0); Hemoglobin (Hb) 7.5 g/dL (12.0-16.0); O2 Tension (PaO2) 407.4 mmHg (> 70.0); Potassium - ABG Lab 3.44 mmol/L (3.70-5.30); pH, Arterial 7.42 (7.35-7.45)
[2019-02-28 11:25] LABS: Actual Bicarbonate (HCO3a) 22.5 mEq/L (22-28); Analyzer IN Cardio OR; Base Excess (BEa) -2.3 mEq/L (-2.0 to +3.0); CO2 Tension 38.9 mmHg (35.0-45.0); Calcium, Ionized 1.07 mmol/L (1.12-1.30); Carboxyhemoglobin (COHb) 0.3 gm% (0.0-3.0); Hemoglobin (Hb) 9.3 g/dL (12.0-16.0); O2 Tension (PaO2) 214.7 mmHg (> 70.0); Potassium - ABG Lab 2.93 mmol/L (3.70-5.30); pH, Arterial 7.38 (7.35-7.45)
[2019-02-28 11:26] LABS: CO2 Tension 21.9 mmHg (35.0-45.0); Puncture Site ALINE; pH, Arterial 7.58 (7.35-7.45)
[2019-02-28 11:27] LABS: Puncture Site ALINE
[2019-02-28 11:27] LABS: Puncture Site ALINE
[2019-02-28 11:28] LABS: Puncture Site ALINE
[2019-02-28 11:28] LABS: Puncture Site ALINE
[2019-02-28 11:29] LABS: Puncture Site ALINE
[2019-02-28] MEDS ORDERED: Cefdinir 300 MG CAP PO SCH (12:00)
--- NOTE | 2019-02-28 14:37 | DIS ---
DATE OF ADMISSION: 02/17/2019 DATE OF DISCHARGE: 02/27/2019 RESIDENT: Geraldo Rice MD ADMITTING ATTENDING: Hong Monroe MD DISCHARGE ATTENDING: Enrico Hinds MD CONSULTS: 1. Dalton Ward MD, Cardiology. 2. Fabrizio Varghese MD, Cardiovascular Surgery. 3. Chris Luna MD, Pulmonology. PROCEDURES PERFORMED: 1. Abdomen and pelvis CT on 02/17/2019, demonstrating no bowel obstruction or evidence of appendix. Gallbladder hydrops and cholelithiasis and a right lower lobe 4 mm pulmonary nodule. Followup not necessarily needed. Prominent atherosclerosis. 2. Cardiac catheterization on 02/20/2019, demonstrating severe three-vessel disease. No stents placed. 3. Coronary artery bypass grafting x2 with left internal mammary artery to the distal left anterior descending and reverse greater saphenous vein graft from aorta to the distal right coronary artery. 4. Echocardiogram on 02/18/2019, demonstrating an ejection fraction of 55% to 60 %, moderate aortic regurgitation and [id number] tricuspid regurgitation. 5. Right IJ central line placed on 02/22/2019, removed on 02/27/2019. 6. Intubated on 02/22/2019, extubated on 02/23/2019. 7. Chest tubes x2 placed on 02/22/2019, discontinued on 02/24/2019. 8. Art line placed on 02/22/2019, discontinued on 02/24/2019. 9. One unit packed red blood cells on 02/23/2019. 10. Mcfarland placed on 02/22/2019, discontinued on 02/26/2019. 11. Chest x-ray on 02/23/2019, demonstrating postoperative changes, improving left basilar opacity. 12. Chest x-ray on 02/24/2019, demonstrating probable tiny apical pneumothorax on the right with right chest tube in place. Increased density in the left lung base, slightly worsened suggesting volume loss. 13. Chest x-ray on 02/25/2019, small pneumothorax in the right lung apex, probably slightly larger than on the previous study. Right chest tube has been removed. Continue follow up lavage. 14. Chest x-ray on 02/26/2019, demonstrating resolution of right apical pneumothorax. Right subclavian central line remains in place. Changes of median sternotomy seen. PRIMARY DIAGNOSES: 1. Non-ST elevation myocardial infarction, status post two vessel coronary artery bypass grafting. 2. Catheter associated urinary tract infection. 3. Acute blood loss anemia, stable. SECONDARY DIAGNOSES: 1. Hyperchloremic metabolic alkalosis, resolved. 2. Type 2 diabetes, stable. 3. Hypertension. 4. Acute kidney injury, resolved. 5. Hyperlipidemia. 6. Viral gastroenteritis, resolved. DISCHARGE MEDICATIONS: 1. Tramadol 50 mg p.o. q.6 hours p.r.n. 2. Multivitamin one tab p.o. daily. 3. Metformin 500 mg p.o. q.a.m. with meals. 4. Imdur ER 30 mg p.o. daily. 5. Ferrous sulfate 325 mg p.o. q.2 days. 6. Cefdinir 300 mg p.o. b.i.d. x7 days. 7. Aspirin 325 mg p.o. daily. 8. Vitamin C 500 mg p.o. q.2 days to take with iron. 9. Lovastatin 40 mg p.o. q.p.m. with meals. DISCONTINUE MEDICATIONS: 1. Glipizide 10 mg p.o. b.i.d. with meals. 2. Lisinopril hydrochlorothiazide 20-25 mg p.o. daily. HISTORY OF PRESENT ILLNESS AND HOSPITAL COURSE: The patient is a pleasant 73-year-old Telugu speaking female, who presented to the ED with 2-day history of fatigue and diarrhea with episodes of hypoglycemia with blood glucose levels to the 80s, which is unusual for her. It is associated with mild cough, headache and malaise. Denied any recent travel, sick contacts, abnormal foods, or dietary habits. Has a recent history of UTI that was treated in outside facility with p.o. antibiotics and denied any symptoms at the time of presentation. The patient was given IV fluid hydration and cultures obtained. The patient did have an episode of chest pain after admission and EKG showed ST depression in V4 to V6 and elevated troponin. The patient was given Lovenox. Troponins were trended. The patient was admitted to telemetry for further evaluation and management. Over the first night of hospitalization, the patient had episode of bradycardia and chest pressure 3-4 episodes lasting up to 1 minute with bradycardia to the 30s. Cardiology was consulted, who recommended early dose of Lovenox and nitroglycerin paste. EKG was ordered. The patient's VIANCA continued to resolve. Cardiology planned for cardiac catheterization. The patient then had cardiac cath, which showed severe three-vessel disease. Cardiovascular Surgery was then consulted for evaluation of coronary artery bypass graft. The patient remained stable on the telemetry floor and was taken for CABG on 02/22/2019. The patient tolerated the procedure well and remained intubated post surgery and transferred to the ICU for close evaluation and management. The above lines were all placed. The patient received 1 unit packed red blood cells. The patient was eventually extubated. Chest tubes removed. Mcfarland removed. Art line discontinued. External pacing wires discontinued. The patient continued to work with Physical Therapy and doing very well. The patient was then transferred to the telemetry floor in stable condition. The patient continued to work with Physical and Occupational Therapy and cardiac rehab. She was transitioned from IV to p.o. medications. The patient then began to experience dysuria and urinary frequency. UA was obtained that was dirty post Mcfarland removal. The patient was started on Rocephin and urine cultures were obtained. At the time of discharge, urine culture was positive for greater than 100,000 units of E coli and Proteus less than 5000 colony-forming units. She was transitioned to p.o. cefdinir with a total 7-day course. Urine culture susceptibilities were pending at the time of discharge. The patient continued to do well and was transitioned to proper p.o. medications for her chronic conditions. On the morning of discharge, the patient had worked with Physical Therapy, able to ambulate up to 300 feet. Discharge plan was discussed at length with family and the patient including options of inpatient rehab versus home with Home Health versus home with outpatient therapy. The patient and family declined inpatient rehab or any home health and said they would prefer to work with her family at home and to go to outpatient therapy throughout the week. Case management was consulted and this was arranged. Cardiac rehab arranged proper followup with specialist as well. At the time of discharge, patient was tolerating p.o. well, ambulating, voiding without difficulty, denied any significant chest pain other than mild soreness controlled pain medications. The patient had mild nausea that was well controlled and was eager for discharge. Discharge plan was discussed with the patient and family at bedside including need for proper followup. The patient voiced agreement understanding of discharge plan and all questions were answered appropriately. DISPOSITION: Stable. DISCHARGE INSTRUCTIONS: 1. Location: Home with outpatient followup. 2. Diet: Heart healthy. 3. Activity: As tolerated. 4. Followup: The patient is to follow up with Dr. Varghese on 03/16/2019 at 2:30 p.m., Dr. Ward in 3-4 weeks. The patient stated they wish to change primary care physician to [facility] with an appointment on 03/09/2019 at 9 a.m. Follow up with cardiac rehab on 03/10/2019 at 8:30 a.m. The patient will have Mobile Care team on 02/28/2019. Job ID: [id number] MTDD
--- NOTE | 2019-03-02 00:18 | PQF ---
[employer] Technician Crystal Reports [facility] LEIA Bui ANUP G MD [id number] CLINICAL DOCUMENTATION CLARIFICATION FORM: POST DISCHARGE Addendum to original discharge summary date: ____ Late entry note date: __ DATE: 03/02/19 ATTN:INDIRA HAYES MD Please exercise your independent, professional judgment in responding to the clarification form. Clinical indicators are provided on the bottom of this form for your review Please check appropriate box(s): [ ] Acute Respiratory Failure: [ ] with Hypoxia[ ] with Hypercapnia [ ] Acute On Chronic Respiratory Failure: [ ] with Hypoxia [ ] with Hypercapnia [ ] Acute Respiratory Failure due to: (etiology) [ ] ARDS (Acute Respiratory Distress Syndrome) [ ] Chronic Respiratory Failure only [ ] with Hypoxia [ ] with Hypercapnia [ ] Hypoxia [ ] Other diagnosis [ ] Unable to determine In addition, please specify: Present on Admission (POA): [ ] Yes [ ] No [ ] Unable to determine For continuity of documentation, please document condition throughout progress notes and discharge summary. Thank You. CLINICAL INDICATORS - SIGNS / SYMPTOMS / LABS -Respiratory failure-Progress note, 02/24-Jeremy Perez MD -Sat: 94L-Respiratory panels, 02/27 -Pneumothorax in the right lung apex- DS, 02/27, Dwayne Chow --Left lung atelectatic changes-Progress note, 02/24-Jeremy Perez MD RISK FACTORS -NSTEMI-DS, 02/27, Dwayne Chow -CABG-OP report, 02/22, Gagan Benitez MD TREATMENTS: --External vent placed- PN, Pietro Broussard M -Chest tube-DS, 02/27, Rice Geraldo -Nasal cannula -O2-02/23 (This form is maintained as a part of the permanent medical record) 2014 [employer], [email or web address]. All Rights Reserved Bartolo Mehta [not provided] [not provided] FRITZD
== END 2019-02-27 19:15 | disposition home or self-care (01) | DRG 233 ==
LOC: ERS 03:37 → T4-A 08:01 → 2NO 11:08 → OBSVTOIN 17:53 → CCU 02-22 07:43 → 2NO 02-25 12:07
PROVIDERS: ADMIT Student in an Organized Health Care Education/Training Program; ATTEND Student in an Organized Health Care Education/Training Program
PROC: 4A023N7 Measurement of Cardiac Sampling and Pressure, Left Heart, Percutaneous Approach (ICD-10-PCS; 2019-02-20)
PROC: B2111ZZ Fluoroscopy of Multiple Coronary Arteries using Low Osmolar Contrast (ICD-10-PCS; 2019-02-20)
PROC: B2151ZZ Fluoroscopy of Left Heart using Low Osmolar Contrast (ICD-10-PCS; 2019-02-20)
PROC: 02100Z9 Bypass Coronary Artery, One Artery from Left Internal Mammary, Open Approach (ICD-10-PCS; principal; 2019-02-22)
PROC: 021009W Bypass Coronary Artery, One Artery from Aorta with Autologous Venous Tissue, Open Approach (ICD-10-PCS; 2019-02-22)
PROC: 06BQ4ZZ Excision of Left Saphenous Vein, Percutaneous Endoscopic Approach (ICD-10-PCS; 2019-02-22)
PROC: 02HV33Z Insertion of Infusion Device into Superior Vena Cava, Percutaneous Approach (ICD-10-PCS; 2019-02-22)
PROC: 30233N1 Transfusion of Nonautologous Red Blood Cells into Peripheral Vein, Percutaneous Approach (ICD-10-PCS; 2019-02-23)
DX: I21.4 Non-ST elevation (NSTEMI) myocardial infarction (principal); J96.90 Respiratory failure, unspecified, unspecified whether with hypoxia or hypercapnia; T83.511A Infection and inflammatory reaction due to indwelling urethral catheter, initial encounter; D62 Acute posthemorrhagic anemia; N17.9 Acute kidney failure, unspecified; E87.3 Alkalosis; J93.9 Pneumothorax, unspecified; J90 Pleural effusion, not elsewhere classified; J98.11 Atelectasis; I10 Essential (primary) hypertension; E78.5 Hyperlipidemia, unspecified; A08.4 Viral intestinal infection, unspecified; E11.649 Type 2 diabetes mellitus with hypoglycemia without coma; D69.6 Thrombocytopenia, unspecified; E86.0 Dehydration; E78.00 Pure hypercholesterolemia, unspecified; K21.9 Gastro-esophageal reflux disease without esophagitis; Z79.4 Long term (current) use of insulin; Z98.41 Cataract extraction status, right eye; Z88.8 Allergy status to other drugs, medicaments and biological substances
CPT/HCPCS: 36415; 36416; 36430; 71045; 74177; 80048; 80053; 80061; 81001; 81003; 82550; 82553; 82805; 83036; 83605; 83630; 84484; 85007; 85025; 85027; 85347; 85610; 85730; 86850; 86900; 86901; 87040; 87045; 87046; 87077; 87086; 87186; 87324; 87427; 87449; 90471; 90670; 93005; 93010; 93306; 93458; 93798; 94002; 94003; 94760; 96361; 96374; 99152; C1769; G0009; J0131; J0690; J0696; J1100; J1642; J1644; J1650; J1815; J1885; J1940; J2001; J2150; J2250; J2270; J2405; J2440; J2704; J2720; J2765; J3010; J3370; J3475; J3480; J3490; J7070; P9016; P9045; Q9967; S0017; S0028

== ENCOUNTER 2019-03-14 09:40 | Emergency (ER) | payer MEDICARE ==
[2019-03-14] MEDS ORDERED: Morphine 2 MG/ML SYRINGE ONE (10:38)
[2019-03-14] MEDS ORDERED: Ondansetron ODT 4 MG TAB ONE (10:38)
--- NOTE | 2019-03-14 10:59 | CT ---
EXAM: CT brain without contrast HISTORY: Fall with head trauma COMPARISON: 01/29/2019 TECHNIQUE: Multiple contiguous axial images were obtained and a CT of the brain without contrast. FINDINGS: There is a stable calcification in the right posterior temporal lobe. The brain is otherwis e normal in morphology and attenuation without focal lesions or confluent areas of infarction. There is no evidence of hydrocephalus, intracranial hemorrhage, or extra-axial fluid collection. The calvarium and overlying soft tissues are unremarkable. The visualized paranasal sinuses and masto id air cells are well aerated. IMPRESSION: No evidence of acute intracranial abnormality
--- NOTE | 2019-03-14 11:03 | CT ---
EXAM: CT of the cervical spine without contrast HISTORY: Neck pain after fall COMPARISON: None TECHNIQUE: Multiple contiguous axial images were obtained in a CT of the cervical spine without contr ast. Sagittal and coronal reformats were performed. FINDINGS: The vertebral bodies and intervertebral discs demonstrate normal height and alignment witho ut fracture or subluxation. No degenerative changes are present. No prevertebral soft tissue swelling is seen. The posterior facets are well aligned. Normal alignment of the skull base with the cervical spine is seen. Calcifications are seen in the carotid arteries. There is a small left pleural effusion. The lung api karthikeyan and cervical soft tissues are otherwise unremarkable. IMPRESSION: No evidence of acute osseous abnormality of the cervical spine.
--- NOTE | 2019-03-14 11:12 | RAD ---
EXAM: 2 views of the left forearm HISTORY: Forearm pain after fall COMPARISON: None FINDINGS: There is no evidence of acute fracture or dislocation. No soft tissue swelling is seen. No degenerative changes are seen in the wrist or elbow. IMPRESSION: No evidence of acute osseous abnormality.
--- NOTE | 2019-03-14 11:13 | RAD ---
Exam: Single view of the pelvis HISTORY: Pelvic and hip pain after fall COMPARISON: None FINDINGS: A single view the pelvis shows no evidence of acute fracture or dislocation. No degenerativ e changes seen in either hip. Surgical clips are seen in the right inguinal region. IMPRESSION: No evidence of acute osseous abnormality.
--- NOTE | 2019-03-14 11:16 | RAD ---
Exam: 3 views lumbar spine History pain. Fall. FINDINGS: 5 lumbar type vertebra. Lumbar spine vertebral body height is maintained. No fracture. Mode rate degenerative disc disease at L5-S1. No spondylolisthesis or spondylolysis Atherosclerosis of the aorta is noted IMPRESSION: No fracture
== END 2019-03-14 12:29 | disposition home or self-care (01) ==
LOC: ERS 09:40
DX: S00.03XA Contusion of scalp, initial encounter (principal); S50.12XA Contusion of left forearm, initial encounter; E11.9 Type 2 diabetes mellitus without complications; E78.2 Mixed hyperlipidemia; E78.00 Pure hypercholesterolemia, unspecified; I10 Essential (primary) hypertension; Z79.84 Long term (current) use of oral hypoglycemic drugs; Z79.899 Other long term (current) drug therapy; W22.8XXA Striking against or struck by other objects, initial encounter; V00.811A Fall from moving wheelchair (powered), initial encounter
CPT/HCPCS: 70450; 72100; 72125; 72170; J2270; Q0162

== ENCOUNTER 2019-08-27 00:56 | Emergency (ER) | payer MEDICARE, OTHER ==
--- NOTE | 2019-08-27 07:56 | ULT ---
DOPPLER VENOUS ULTRASOUND OF THE RIGHT LOWER EXTREMITY: INDICATION: Right inner thigh pain. TECHNIQUE: Alvarenga scale, color Doppler, and vascular duplex with spectral analysis was performed of the deep venou s structures of both lower extremities. The common femoral vein, superficial femoral vein, popliteal vein, posterior tibial vein, proximal greater saphenous, and proximal profunda veins were assessed bi laterally. FINDINGS: There is normal compression, flow, and augmentation seen within the deep venous structures of the rig ht lower extremity. IMPRESSION: No evidence of deep vein thrombosis within the right lower extremity. POS: BH
== END 2019-08-27 02:51 | disposition home or self-care (01) ==
LOC: ERS 00:56
DX: M79.651 Pain in right thigh (principal); E11.9 Type 2 diabetes mellitus without complications; E78.5 Hyperlipidemia, unspecified; I10 Essential (primary) hypertension; Z79.899 Other long term (current) drug therapy

== ENCOUNTER 2020-07-26 12:45 | Outpatient (CLI) | payer MEDICARE ==
[2020-07-26 14:02] LABS: #Basophils 0.1 10x3/uL (0.0-0.2); #Eosinphils 0.1 10x3/uL (0.0-0.5); #Monocytes 0.5 10x3/uL (0.0-1.1); #Neutrophils 3.7 10x3/uL (1.5-8.4); %Basophils 1.1 % (0.0-2.0); %Eosinophils 2.2 % (0.0-6.0); %Lymphocytes 30.6 % (18.0-47.0); %Monocytes 7.7 % (0.0-10.0); %Neutrophils 58.1 % (40.0-75.0); Hemoglobin 12.4 g/dL (12.0-15.5); Mean Corpuscular HGB CONC 33.3 g/dL (32.0-36.0); Mean Platelet Volume 11.6 fl (7.4-10.4); Platelet Count 182 10x3/uL (150-450); RBC Distribution Width 13.4 % (11.5-14.5); White Blood Cell (WBC) Count 6.4 10x3/uL (3.5-10.5)
[2020-07-26 14:18] LABS: ALT (SGPT) 14 U/L (8-55); AST (SGOT) 13 U/L (5-34); Albumin 4.4 g/dL (3.4-4.8); Alkaline Phosphatase 93 U/L (40-110); Anion Gap 9 mmol/L (10-20); BUN (Urea Nitrogen) 14 mg/dL (9.8-20.1); Calc. Creatinine Clearance 0 mL/min (70-130); Calcium 9.7 mg/dL (7.8-10.44); Carbon Dioxide 30 mmol/L (23-31); Cardiac Risk 3.1 (Less than 4.5); Chloride 98 mmol/L (98-107); Cholesterol 142 mg/dl (< 200 Desired); Globulin 2.4 g/dL (2.4-3.5); Glucose 201 mg/dL (83-110); HDL Cholesterol 46 mg/dL (>60 Neg Risk); LDL Cholesterol, Calculated 73 mg/dL; Potassium 5.9 mmol/L (3.5-5.1); Protein, Total 6.8 g/dL (5.8-8.1); Sodium 131 mmol/L (136-145); Triglycerides 115 mg/dL (Less than 150)
[2020-07-26 23:17] LABS: SARS-CoV-2 PCR by NAA Not Detected (NotDetected)
== END 2020-07-26 12:46 | disposition home or self-care (01) ==
LOC: LABBT 12:45
PROVIDERS: ATTEND Internal Medicine Cardiovascular Disease
DX: Z01.812 Encounter for preprocedural laboratory examination (principal); I25.10 Atherosclerotic heart disease of native coronary artery without angina pectoris; Z20.822 Contact with and (suspected) exposure to COVID-19
CPT/HCPCS: 80053; 80061; 85025; U0003; U0005; 87635

== ENCOUNTER 2020-07-31 05:34 | Day surgery (SDC) | payer MEDICARE ==
[2020-07-31] MEDS ORDERED: Heparin 10,000 UNITS/ 10 ML VIAL ONE (06:36)
[2020-07-31] MEDS ORDERED: Lidocaine 1% (PF) 30 ML VIAL ONE (06:37)
[2020-07-31] MEDS ORDERED: Midazolam HCl 2 mg/2 ml Vial ONE (07:21)
[2020-07-31] MEDS ORDERED: Fentanyl 100 MCG/2 ML VIAL ONE (07:21)
[2020-07-31] MEDS ORDERED: Bivalirudin 250 MG VIAL ONE (07:47)
[2020-07-31] MEDS ORDERED: Clopidogrel Bisulfate 300 MG TAB ONE (07:47)
[2020-07-31] MEDS ORDERED: Nitroglycerin 100MG/250ML BOT 250 ML ONE (08:16)
[2020-07-31] MEDS ORDERED: Ondansetron PF 4 MG/2 ML Vial ONE (08:19)
[2020-07-31] MEDS ORDERED: Sodium Chloride 0.9% 1,000 ML IV SCH (09:30)
[2020-07-31] MEDS ORDERED: hydrALAZINE 20 MG/ML VIAL ONE (11:05)
[2020-07-31] MEDS ORDERED: Iopamidol 370 76% 50 ML VIAL FS ONE (14:33)
[2020-07-31] MEDS ORDERED: Iopamidol 370 76% 100 ML VIAL ONE (14:33)
[2020-08-01] MEDS ORDERED: Aspirin Chewable 81 MG TAB PO SCH (09:00)
[2020-08-02] MEDS ORDERED: Clopidogrel Bisulfate 75 MG TAB PO SCH (09:00)
== END 2020-07-31 18:06 | disposition home or self-care (01) ==
LOC: CCL 05:34
PROVIDERS: ATTEND Internal Medicine Cardiovascular Disease
PROC: 027135Z Dilation of Coronary Artery, Two Arteries with Two Drug-eluting Intraluminal Devices, Percutaneous Approach (ICD-10-PCS; principal; 2020-07-31)
PROC: 4A023N7 Measurement of Cardiac Sampling and Pressure, Left Heart, Percutaneous Approach (ICD-10-PCS; 2020-07-31)
PROC: B2111ZZ Fluoroscopy of Multiple Coronary Arteries using Low Osmolar Contrast (ICD-10-PCS; 2020-07-31)
PROC: B2181ZZ Fluoroscopy of Left Internal Mammary Bypass Graft using Low Osmolar Contrast (ICD-10-PCS; 2020-07-31)
DX: I25.10 Atherosclerotic heart disease of native coronary artery without angina pectoris (principal); I25.2 Old myocardial infarction; E11.9 Type 2 diabetes mellitus without complications; I10 Essential (primary) hypertension; E78.5 Hyperlipidemia, unspecified; E78.00 Pure hypercholesterolemia, unspecified; I35.1 Nonrheumatic aortic (valve) insufficiency; I34.0 Nonrheumatic mitral (valve) insufficiency; Z79.82 Long term (current) use of aspirin; Z79.84 Long term (current) use of oral hypoglycemic drugs; Z79.899 Other long term (current) drug therapy; Z88.8 Allergy status to other drugs, medicaments and biological substances; Z95.1 Presence of aortocoronary bypass graft
CPT/HCPCS: 85347; 92928; 93005; 93459; 99152; 99153; C1874; C9600; J0360; J0583; J1644; J2001; J2250; J2405; J3010; Q9967

== ENCOUNTER 2021-12-16 11:14 | Outpatient (CLI) | payer MEDICARE | END 2021-12-16 11:15 | disposition home or self-care (01) | LOC: BICRAD 11:14 | PROVIDERS: ATTEND Nurse Practitioner Family | DX: M79.604 Pain in right leg (principal) ==

== ENCOUNTER 2022-04-07 11:47 | Emergency (ER) | payer MEDICARE ==
[2022-04-07 12:50] LABS: #Eosinphils 0.1 thou/uL (0.0-0.7); #Lymphocytes 1.2 thou/uL (1.20-3.40); #Monocytes 0.5 thou/uL (0.11-0.59); #Neutrophils 4.3 thou/uL (1.40-6.50); %Basophils 0.6 % (0.0-1.0); %Eosinophils 1.4 % (0.0-10.0); %Lymphocytes 19.5 % (21.0-51.0); %Monocytes 8.6 % (0.0-10.0); %Neutrophils 69.9 % (42.0-75.0); Hemoglobin 11.5 g/dL (12.0-16.0); Mean Corpuscular HGB CONC 32.8 g/dL (32.0-36.0); Mean Corpuscular Hemoglobin 32.3 pg (27.0-31.0); Mean Corpuscular Volume 98.5 fl (78.0-98.0); Mean Platelet Volume 9.2 fL (7.4-10.4); Platelet Count 159 10x3/uL (130-400); RBC Distribution Width 12.8 % (11.5-14.5); Red Blood Cell (RBC) Count 3.55 mill/uL (4.20-5.40); White Blood Cell (WBC) Count 6.1 10x3/uL (4.8-10.8)
[2022-04-07 13:19] LABS: ALT (SGPT) 12 U/L (8-55); AST (SGOT) 13 U/L (5-34); Albumin 4.2 g/dL (3.4-4.8); Alkaline Phosphatase 94 U/L (40-110); Anion Gap 10 mmol/L (10-20); BUN (Urea Nitrogen) 14 mg/dL (9.8-20.1); Calc. Creatinine Clearance 0 mL/min (70-130); Calcium 9.2 mg/dL (7.8-10.44); Carbon Dioxide 23 mmol/L (23-31); Chloride 107 mmol/L (98-107); Estimated GFR 46; Globulin 2.3 g/dL (2.4-3.5); Glucose 200 mg/dL (83-110); Potassium 4.5 mmol/L (3.5-5.1); Protein, Total 6.5 g/dL (5.8-8.1); Sodium 135 mmol/L (136-145)
[2022-04-07] MEDS ORDERED: Acetaminophen 500 MG TAB ONE (14:12)
== END 2022-04-07 14:19 | disposition home or self-care (01) ==
LOC: ERS 11:47
DX: S00.93XA Contusion of unspecified part of head, initial encounter (principal); E11.9 Type 2 diabetes mellitus without complications; E78.00 Pure hypercholesterolemia, unspecified; I10 Essential (primary) hypertension; Z79.84 Long term (current) use of oral hypoglycemic drugs; Z79.899 Other long term (current) drug therapy
CPT/HCPCS: 36415; 36416; 70450; 71045; 72125; 80053; 84484; 85025; 93005